=== PATIENT | female | born 1955 | race Caucasian/White ===

== ENCOUNTER 2016-06-28 10:04 | Outpatient (CLI) | payer MEDICAID ==
[~2016-06-28] VITALS: Ht 162.6 cm; Wt 59.9 kg
[~2016-06-28 10:04] MED LIST: ACHD5005 PO; ACYC400T; ALPR.5T PO; CEFU500T PO; DICY20TA10; ESOM40CA52 PO; HYDR-700; METH750T3 PO; NABU500T; NF-ESOM40C PO; PRD20T PO; SULF-222; SULF1TAB35 PO; TIZA4TAB3; TRAM50TA2 PO; VILA40TA; [UNRECOGNIZED DRUG - OTHER] PO
[2016-06-28] MEDS ORDERED: LIDOCAINE 2% 20 ML (XYLOCAINE) VIAL ONE (10:05)
[2016-06-28 10:29] VITALS: BP 124/82
[2016-06-28 11:21] VITALS: BP 126/88
--- NOTE | 2016-06-28 13:24 | Pain Medicine-Procedure ---
Procedure Pre-Op/Post-Op Diagnosis Diagnosis: spondylosis without myelopathy, lumbar Indications for Operation Low back pain Attending Surgeon Chaya Procedure Date of Service: Jun 28, 2016 PROCEDURE: Radiofrequency Ablation (RFA) of left L3, L4, L5 and sacral ala (S1 ) Medial Branches NOTE: After obtaining written informed consent patient was taken to the procedure room. Pre-procedure blood pressure and pulse were stable and recorded in patients clinic chart. Patient was placed in a prone position and left lumbar area was prepped with chloraprep and draped in the usual sterile fashion. The skin over the sacral ala on the left was injected with 2% Lidocaine for local anesthesia. A 20-gauge RFA 100 mm needle with 10 mm active was inserted and advanced until it was touching the sacral ala in the area of the medial branch from S1. Next, in the oblique view, the left L3,L4 and L5 levels were identified. The skin over L3, L4 and L5 was then injected with 1% Lidocaine for local anesthesia. Next a 20-gauge RFA 100 mm needle with 10 mm active tip was inserted and advanced until it was touching the L3, L4 and L5 levels in the distrubution of the medial branches at each level making sure to not enter the neuroforamina. Following the placement of the needles sensory stimulation at 50 Hz and motor stimulation at 2 Hz was carried out. After confirming reproduction of the pain/sensation in the area of symptoms and the patient denying any motor movement, 0.5 mL's of 2% preservative free Lidocaine was injected at each level after negative aspiration. The RFA was then carried out in lesion mode. The settings were 80 C, and 90 seconds for lesion mode at each level. During the procedure no pain was reported in the extremities by the patient. After the procedure the needles were removed. Skin was cleaned and a sterile dressing was applied. Following the procedure the patient's vital signs were stable. The patient was discharged. RFA DATA: In chart Complications None NOHEMI MOSS MD Jun 28, 2016 1:24 pm
== END 2016-06-28 11:22 | disposition home or self-care (01) ==
LOC: CARD 10:04
PROVIDERS: ATTEND Pain Medicine Pain Medicine
DX: M47.816 Spondylosis without myelopathy or radiculopathy, lumbar region (principal)
CPT/HCPCS: 64493; 64494; 64495

== ENCOUNTER 2016-07-19 08:36 | Outpatient (CLI) | payer MEDICAID ==
[~2016-07-19] VITALS: Ht 165.1 cm; Wt 62.6 kg
[2016-07-19] MEDS ORDERED: LIDOCAINE 2% 20 ML (XYLOCAINE) VIAL ONE (08:37)
[2016-07-19 08:54] VITALS: BP 115/91
[2016-07-19 10:08] VITALS: BP 122/78
--- NOTE | 2016-07-19 12:47 | Pain Medicine-Procedure ---
Procedure Pre-Op/Post-Op Diagnosis Diagnosis: spondylosis without myelopathy, lumbar Indications for Operation Low back pain Attending Surgeon Chaya Procedure Date of Service: Jul 19, 2016 PROCEDURE: Radiofrequency Ablation (RFA) of right L3, L4, L5 and sacral ala (S1 ) Medial Branches NOTE: After obtaining written informed consent patient was taken to the procedure room. Pre-procedure blood pressure and pulse were stable and recorded in patients clinic chart. Patient was placed in a prone position and right lumbar area was prepped with chloraprep and draped in the usual sterile fashion. The skin over the sacral ala on the right was injected with 2% Lidocaine for local anesthesia. A 20-gauge RFA 100 mm needle with 10 mm active was inserted and advanced until it was touching the sacral ala in the area of the medial branch from S1. Next, in the oblique view, the right L3,L4 and L5 levels were identified. The skin over L3, L4 and L5 was then injected with 1% Lidocaine for local anesthesia. Next a 20-gauge RFA 100 mm needle with 10 mm active tip was inserted and advanced until it was touching the L3, L4 and L5 levels in the distrubution of the medial branches at each level making sure to not enter the neuroforamina. Following the placement of the needles sensory stimulation at 50 Hz and motor stimulation at 2 Hz was carried out. After confirming reproduction of the pain/sensation in the area of symptoms and the patient denying any motor movement, 0.5 mL's of 2% preservative free Lidocaine was injected at each level after negative aspiration. The RFA was then carried out in lesion mode. The settings were 80 C, and 90 seconds for lesion mode at each level. During the procedure no pain was reported in the extremities by the patient. After the procedure the needles were removed. Skin was cleaned and a sterile dressing was applied. Following the procedure the patient's vital signs were stable. The patient was discharged. RFA DATA: In chart Complications None NOHEMI MOSS MD Jul 19, 2016 12:47 pm
== END 2016-07-19 10:11 ==
LOC: CARD 08:36
PROVIDERS: ATTEND Pain Medicine Pain Medicine
DX: M47.816 Spondylosis without myelopathy or radiculopathy, lumbar region (principal); Z79.899 Other long term (current) drug therapy
CPT/HCPCS: 64635; 64636

== ENCOUNTER 2016-09-05 12:55 | Outpatient (RCR) | payer MEDICAID | END 2016-09-05 13:47 | disposition home or self-care (01) | PROVIDERS: ATTEND Pain Medicine Pain Medicine | DX: M54.2 Cervicalgia (principal) ==

== ENCOUNTER → 2016-09-06 | Outpatient (CLI) | payer MEDICAID ==
--- NOTE | 2016-09-07 12:07 | Diagnostic Imaging Report ---
PROCEDURE: MRI left joint lower extremity without contrast. TECHNIQUE: Multiplanar, multisequence non contrast-enhanced MRI of the left lower extremity was accomplished. INDICATION: Left hip pain. There are no prior MRI examinations available for comparison. FINDINGS: The plain film examination left hip performed on 05/08/16 failed to show any sign of acute abnormality. On this exam, there is no abnormal signal arising from left hip to suggest bone edema. There is no sign of avascular necrosis either. The hip joint itself seems to be fairly well-maintained. However, on the proton dense sagittal series, there is a small 4 MM subchondral cyst in the anterior aspect of the hip joint. I suspect that this finding is an indirect sign of a labral tear. The labrum itself is somewhat irregular, but not significantly torn. However, further evaluation of the integrity of the labrum is desired, then followup MRI exam with intra-articular contrast would be recommended. There is no abnormality of the musculature about the left hip. There is no pelvic mass or free fluid collection noted. Remainder of the bony pelvis is unremarkable. There is no pelvic mass or free fluid collection identified either. IMPRESSION: 1. There is no evidence for an acute bony abnormality and there is no sign of avascular necrosis of left hip. 2. There is only mild degenerative disease involving the hip joint. However, the presence of the cyst in the anterior subchondral region may be an indirect sign of a labral tear. Recommendations as above. Dictated by: Dictated on workstation # [id number]
== END ==
LOC: RAD 17:00
PROVIDERS: ATTEND Orthopaedic Surgery
DX: M24.152 Other articular cartilage disorders, left hip (principal)
CPT/HCPCS: 73721

== ENCOUNTER 2017-01-10 11:28 | Outpatient (RCR) | payer MEDICAID | END 2017-01-31 10:56 | disposition home or self-care (01) | PROVIDERS: ATTEND Orthopaedic Surgery Sports Medicine | DX: Z98.890 Other specified postprocedural states (principal); M25.552 Pain in left hip ==

== ENCOUNTER 2019-01-20 19:47 | Emergency (ER) | payer MEDICAID ==
[~2019-01-20] VITALS: Ht 162.6 cm; Wt 59.0 kg
[~2019-01-20 19:47] MED LIST changes: -TIZA4TAB3; +TIZA4TAB4
[2019-01-20] MEDS ORDERED: KETOROLAC 30 MG/ML VIAL IM ONE (20:00)
--- NOTE | 2019-01-20 20:04 | ED Hip Pain/Injury ---
General Chief Complaint: Hip/Pelvic Problems Stated Complaint: L HIP PAIN Nursing Triage Note: Patient is complaining of left hip pain. Patient has chronic pain issues with the left hip. She reports getting a steroid shot few days ago in [place]. Patient states that having sudden severe pain [employer]. Source: patient Exam Limitations: no limitations History of Present Illness Date Seen by Provider: Jan 20, 2019 Time Seen by Provider: 20:02 Initial Comments To ER with reports of sudden onset of exacerbation of her chronic left hip pain. She's had an arthroscopy of the left hip at the [facility] several years ago, she had a injection of steroid in the left hip by Dr. Manzo at [facility] last week. These typically health. This morning upon awakening she felt much better. She denies fevers or chills. 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 When asked what makes it worse she states "everything" including sitting still. When asked what makes it better she states "nothing". Timing/Duration: constant Severity: moderate Location: hip (L) Associated Symptoms: denies symptoms; No fever Allergies and Home Medications Allergies Coded Allergies: doxycycline (Unverified Allergy, Unknown, RASH, 06/01/16) Home Medications Alprazolam 0.5 Mg Tablet, 0.5 MG PO TID PRN PRN for ANXIETY, (Reported) PRN ANXIETY Cefuroxime Axetil 500 Mg Tablet, 500 MG PO BID Prescribed by: LIZA REYNA on 06/01/16 1740 Esomeprazole Mag Trihydrate 40 Mg Capsule.dr, 40 MG PO DAILY, (Reported) Esomeprazole Magnesium 40 Mg Capsule.dr, 1 TAB PO DAILY, (Reported) Methocarbamol 750 Mg Tablet, 1 TAB PO DAILY PRN for PAIN, (Reported) Prednisone 20 Mg Tab, 40 MG PO DAILY Prescribed by: SANTHOSH LUGO on 05/08/16 1143 Tramadol HCl 50 Mg Tablet, 50 MG PO Q4H PRN for PAIN Prescribed by: SANTHOSH LUGO on 05/08/16 1143 Patient Home Medication List Home Medication List Reviewed: Yes Review of Systems Constitutional: see HPI EENTM: see HPI Respiratory: no symptoms reported Cardiovascular: no symptoms reported Genitourinary: no symptoms reported Musculoskeletal: see HPI Skin: no symptoms reported Psychiatric/Neurological: No Symptoms Reported Past Bkaeqke-Qetcql-Hodhsd Hx Patient Social History Alcohol Use: Denies Use Recreational Drug Use: No Smoking Status: Current Everyday Smoker Type Used: Cigarettes Recent Foreign Travel: No Contact w/Someone Who Travel: No Recent Infectious Disease Expo: No Recent Hopitalizations: No Immunizations Up To Date Date of Influenza Vaccine: May 24, 2013 Seasonal Allergies Seasonal Allergies: No Past Medical History Surgeries: Yes (left hernia repair. right breast biopsy) Hysterectomy Respiratory: No Cardiac: Yes High Cholesterol Neurological: No Genitourinary: No Gastrointestinal: No Musculoskeletal: Yes (DJD LEFT KNEE) Chronic Back Pain Endocrine: No Cancer: No Psychosocial: Yes PTSD Integumentary: No Blood Disorders: No Family Medical History No Pertinent Family Hx Physical Exam Vital Signs Vital Signs - First Documented 01/20/19 19:52 Temp 97.7 Pulse 82 Resp 20 B/P (MAP) 128/75 (92) Capillary Refill : Less Than 3 Seconds Height, Weight, BMI Height: 5'4.00" Weight: 130lbs. 0oz. 58.282666sg; 23.0 BMI Method:Stated General Appearance: No Apparent Distress, WD/WN Neck: Full Range of Motion, Normal Inspection Respiratory: No Accessory Muscle Use, No Respiratory Distress Gastrointestinal: Normal Bowel Sounds, Non Tender, Soft Extremity: Normal Capillary Refill, Normal Inspection Neurologic/Psychiatric: Alert, Oriented x3 Skin: Normal Color, Warm/Dry Progress/Results/Core Measures Results/Orders My Orders Orders - LIZA REYNA APRN Hip, Left, 2 Views (01/20/19 20:00) Ketorolac Injection (Toradol Injection) (01/20/19 20:00) Medications Given in ED Current Medications Medications Dose Ordered Sig/Justin Route Start Time Stop Time Status Last Admin Dose Admin Ketorolac Tromethamine 30 mg ONCE ONCE IM 01/20/19 20:00 01/20/19 20:02 DC 01/20/19 20:10 30 MG Vital Signs/I&O 01/20/19 19:52 Temp 97.7 Pulse 82 Resp 20 B/P (MAP) 128/75 (92) Blood Pressure Mean: 92 Departure Communication (Admissions) She has no systemic symptoms of infection such as tachycardia fever or chills. We will treat this as a mechanical in nature exacerbation of her chronic pain. Impression Primary Impression: Hip pain, left Disposition: 01 HOME, SELF-CARE Condition: Stable Departure-Patient Inst. Decision time for Depature: 20:15 Referrals: JUAN CHAVARRIA MD (PCP/Family) Primary Care Physician Patient Instructions: Hip Pain Images Extremities-Lower 1 - Other-See Progress Note LIZA REYNA APRN Jan 20, 2019 20:04
--- NOTE | 2019-01-20 20:13 | Diagnostic Imaging Report ---
INDICATION: Chronic pain worsening in severity. EXAMINATION: Two views of the left hip were obtained. FINDINGS: No fracture, dislocation or acute articular incongruity. IMPRESSION: No acute appearing abnormality. Dictated by: Dictated on workstation # [id number]
[2019-01-20 20:35] VITALS: BP 128/75
--- OUTSIDE RECORDS SUMMARY | 2019-01-20 21:05 | XMS REPORT ---
Author Author Migration, Doctor Organization [facility] Address Unknown Phone Unavailable Care Team Providers Care Timber Sprinkler Name Role Phone Migration, Doctor Unavailable Unavailable PROBLEMS Type Condition ICD9-CM Code VHW30-TP Code Onset Dates Condition Status SNOMED Code Problem Screening examination for pulmonary tuberculosis V74.1 Active 364304387 Problem MMR DX V06.4 Active Problem DTAP TEST V06.1 Active Problem Routine general medical examination at health care facility V70.0 Active 170543222 Problem Lumbago 724.2 Active 530577063 Problem STATE HEP A (ADULT) DX V05.3 Active 785719884 Problem Acute pharyngitis 462 Active 157420251 Problem Acute sinusitis, unspecified 461.9 Active 59062084 Problem Plantar wart 078.12 Active 23233897 Problem Post-traumatic stress disorder, chronic F43.12 Active 06253199 Problem Acute upper respiratory infections of unspecified site 465.9 Active 79640722 Problem 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 Active 32222988 Problem Acute bronchitis 466.0 Active 88642066 Problem Viral warts, unspecified 078.10 Active 41337137 Problem Corns and callosities 700 Active 512021064 Problem Need for prophylactic vaccination and inoculation, Influenza V04.81 Active 795779681 Problem 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 Active 55265453 ALLERGIES No Information ENCOUNTERS Encounter Location Date Diagnosis [facility] [address] [facility] [id number] [id number] Dec, Dental examination Z01.20 [facility] [address] [id number] [place] [address] May, Encounter for immunization Z23 [facility] [address] [facility] [id number] [address] 03 Jan, 2016 Post-traumatic stress disorder, chronic F43.12 ; 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 and 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 [facility] [address] [address] Dec, Post-traumatic stress disorder, chronic F43.12 ; 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 and 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 [facility] [address] [address] Dec, Post-traumatic stress disorder, chronic F43.12 ; 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 and 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 [facility] [id number] [place] [address] Dec, Chronic post-traumatic stress disorder (PTSD) F43.12 and Generalized anxiety disorder F41.1 [facility] [id number] [place] [address] Dec, Panic attacks F41.0 ; Anxiety, generalized F41.1 and Social phobia F40.10 [facility] [id number] [place] [address] Mar, Encounter for immunization Z23 [facility] [id number] [place] [address] Sep, [facility] [id number] [place] [address] Sep, [facility] [address] [address] Apr, [facility] [id number] [place] [address] Apr, [facility] [id number] [place] [address] Apr, [facility] [id number] [place] [address] Apr, [facility] [address] [address] Apr, [facility] [id number] [place] [address] Apr, [facility] [address] [id number] [place] [address] May, [facility] [place] [facility] [address] [id number] [place] [address] May, [facility] [place] [facility] [address] [id number] [place] [address] May, [facility] [place] [facility] [address] [id number] [place] [address] May, [facility] [place] [facility] [address] [id number] [place] [address] May, [facility] [place] [facility] [address] [id number] [place] [address] May, [facility] [place] [facility] [address] [id number] [place] [address] Apr, [facility] [address] [id number] [place] [address] Apr, [facility] [place] [facility] [address] [id number] [place] [address] Mar, [facility] [place] [facility] [address] [id number] [place] [address] Mar, [facility] [place] [facility] [address] [id number] [place] [address] Mar, [facility] [place] [facility] [address] [id number] [place] [address] Mar, [facility] [place] [facility] [address] [id number] [place] [address] Mar, [facility] [place] [facility] [address] [id number] [place] [address] Mar, [facility] [place] [facility] [address] [id number] [place] [address] Feb, [facility] [address] [facility] [id number] [address] Jan, [facility] [address] [address] Aug, [facility] [address] [facility] [id number] [address] Jul, [facility] [address] [address] Jun, [facility] [address] [facility] [id number], [place] [address] Jun, IMMUNIZATIONS No Known Immunizations SOCIAL HISTORY Never Assessed REASON FOR VISIT EMR-[facility] [place] PLAN OF CARE VITAL SIGNS MEDICATIONS Unknown Medications RESULTS No Results PROCEDURES No Known procedures INSTRUCTIONS MEDICATIONS ADMINISTERED No Known Medications MEDICAL (GENERAL) HISTORY Type Description Date Hospitalization History [facility] January 2015
--- OUTSIDE RECORDS SUMMARY | 2019-01-20 21:05 | XMS REPORT ---
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 Active 90539541 Problem Post-traumatic stress disorder, chronic F43.12 Active 10635423 Problem Plantar wart 078.12 Active 94298284 Problem Acute sinusitis, unspecified 461.9 Active 28427652 Problem 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 Active 33717796 Problem Viral warts, unspecified 078.10 Active 10457086 Problem MMR DX V06.4 Active Problem Screening examination for pulmonary tuberculosis V74.1 Active 344847118 Problem STATE HEP A (ADULT) DX V05.3 Active 698844249 Problem Need for prophylactic vaccination and inoculation, Influenza V04.81 Active 432387348 Problem Routine general medical examination at health care facility V70.0 Active 907569404 Problem Corns and callosities 700 Active 251811960 Problem DTAP TEST V06.1 Active Problem Lumbago 724.2 Active 502514920 ALLERGIES Substance Reaction Event Type Date Status Doxycycline Unknown Drug Allergy Dec, Active ENCOUNTERS Encounter Location Date Diagnosis [facility] [address] [id number] [place] [id number] Dec, Dental examination Z01.20 [facility] [address] [id number] [place] [address] May, Encounter for immunization Z23 [facility] [address] [facility] [id number] [place] [address] Jan, Post-traumatic stress disorder, chronic F43.12 ; 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 and 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 [facility] [place] [id number] [place] [address] Dec, Post-traumatic stress disorder, chronic F43.12 ; 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 and 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 [facility] [place] [address] [address] Dec, Post-traumatic stress disorder, chronic F43.12 ; 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 and 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 [facility] [place] [address] [address] Dec, Chronic post-traumatic stress disorder (PTSD) F43.12 and Generalized anxiety disorder F41.1 [facility] [place] [address] [address] Dec, Panic attacks F41.0 ; Anxiety, generalized F41.1 and Social phobia F40.10 [facility] [place] [id number] [place] [address] Mar, Encounter for immunization Z23 [facility] [place] [address] [address] Sep, [facility] [place] [id number] [place] [address] Sep, [facility] [place] [id number] [place] [address] Apr, [facility] [place] [id number] [place] [address] Apr, [facility] [place] [address] [address] Apr, [facility] [place] [id number] [place] [address] Apr, [facility] [place] [address] [place] [address] 05 Apr, 2014 [facility] [place] [facility] [address] [id number] [place] [address] Apr, [facility] [place] [facility] [address] [id number] [place] [address] May, [facility] [place] [facility] [address] [id number] [place] [address] May, [facility] [place] [facility] [address] [id number] [place] [address] May, [facility] [place] [facility] [address] [id number] [place] [address] May, [facility] [place] [facility] [address] [id number] [place] [address] May, [facility] [place] [facility] [address] [id number] [place] [address] May, [facility] [place] [facility] [address] [id number] [place] [address] Apr, [facility] [place] [facility] [address] [id number] [place] [address] Apr, [facility] [place] [facility] [address] [facility] [id number] [place] [address] Mar, [facility] [place] [facility] [address] [id number] [place] [address] Mar, [facility] [place] [facility] [address] [id number], [place] [address] Mar, [facility] [place] [facility] [address] [id number] [place] [address] Mar, [facility] [place] [facility] [address] [id number] [place] [address] Mar, [facility] [place] [facility] [address] [id number] [place] [address] Mar, [facility] [place] [address] [facility] [id number], [place] [address] Feb, [facility] [place] [address] [id number] [address] Jan, [facility] [place] [address] [address] Aug, [facility] [place] [address] [place] [address] Jul, [facility] [place] [address] [address] Jun, [place] [address] [address], [place] [address] Jun, IMMUNIZATIONS No Known Immunizations SOCIAL HISTORY Never Assessed REASON FOR VISIT restorative #14-ref from [facility] PLAN OF CARE Activity Details Follow Up prn Reason:30 min possible restorative #[address] Montemayor VITAL SIGNS Height 64 in 2018-01-16 Blood pressure systolic 116 mmHg 2018-01-16 Blood pressure diastolic 84 mmHg 2018-01-16 MEDICATIONS Medication Instructions Dosage Frequency Start Date End Date Duration Status Xanax 0.25 mg SIG: orally 2 times a day Jun, Not-Taking Paxil 20 mg Orally Once a day 1 tablet in the morning 24h Dec, 30 day(s) Active Fenofibrate 145 MG Orally Once a day 1 tablet 24h Not-Taking HydrOXYzine HCl 25 MG Orally 2 times a day 1 tablet as needed 12h Not-Taking Tricor Active Xanax Active Amoxicillin 500 mg 2 capsule by Oral route 2 times per day for 10 day(s) Aug, Not-Taking Viibryd 40 mg take 1 tablet (40 mg) by oral route once daily with food Mar, Not-Taking Seroquel Active Nexium 40 MG Orally Once a day 1 capsule 24h Active Dicyclomine HCl 20 MG Orally Four times a day 1 tablet 6h Active RESULTS No Results PROCEDURES Procedure Date Ordered Result Body Site BITEWING - SINGLE FILM January 16, 2018 RESIN COMPOS - 1 SURFACE POSTERIOR January 16, 2018 INSTRUCTIONS MEDICATIONS ADMINISTERED No Known Medications MEDICAL (GENERAL) HISTORY Type Description Date Hospitalization History [facility] January 2015
--- OUTSIDE RECORDS SUMMARY | 2019-01-20 21:05 | XMS REPORT ---
Author Author Migration, Doctor Organization [facility] Address Unknown Phone Unavailable Care Team Providers Care Metal Expediter Name Role Phone Migration, Doctor Unavailable Unavailable PROBLEMS Type Condition ICD9-CM Code PPN15-RK Code Onset Dates Condition Status SNOMED Code Problem Screening examination for pulmonary tuberculosis V74.1 Active 082602170 Problem MMR DX V06.4 Active Problem DTAP TEST V06.1 Active Problem Routine general medical examination at health care facility V70.0 Active 071200137 Problem Need for prophylactic vaccination and inoculation, Influenza V04.81 Active 792485997 Problem STATE HEP A (ADULT) DX V05.3 Active 243543380 Problem Acute bronchitis 466.0 Active 67371341 Problem Acute upper respiratory infections of unspecified site 465.9 Active 88685182 Problem Acute pharyngitis 462 Active 403996824 Problem Post-traumatic stress disorder, chronic F43.12 Active 74433246 Problem Lumbago 724.2 Active 135558249 Problem 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 Active 86411709 Problem Corns and callosities 700 Active 557749665 Problem Acute sinusitis, unspecified 461.9 Active 28437187 Problem Plantar wart 078.12 Active 03437167 Problem Viral warts, unspecified 078.10 Active 57755028 Problem 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 Active 93688192 ALLERGIES Substance Reaction Event Type Date Status Doxycycline Unknown Drug Allergy Sep, Active ENCOUNTERS Encounter Location Date Diagnosis [facility] [address] [facility] [id number] [place] [id number] Dec, Dental examination Z01.20 [facility] [address] [id number] [place] [address] May, Encounter for immunization Z23 [facility] [address] [facility] [id number], [place] [address] 03 Jan, 2016 Post-traumatic stress disorder, chronic F43.12 ; 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 and 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 [facility] [address] [place] [address] Dec, Post-traumatic stress disorder, chronic F43.12 ; 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 and 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1 and Social phobia F40.10 [facility] [id number] [place] [address] Mar, Encounter for immunization Z23 [facility] [id number] [place] [address] Sep, [facility] [id number] [place] [address] Sep, [facility] [id number] [place] [address] Apr, [facility] [id number] [place] [address] Apr, [facility] [id number] [place] [address] Apr, [facility] [id number] [place] [address] Apr, [facility] [id number] [place] [address] Apr, [facility] [place] [facility] [address] [id number] [place] [address] Apr, [facility] [place] [facility] [address] [id number] [place] [address] May, [facility] [place] [facility] [address] [id number] [place] [address] May, [facility] [place] [facility] [address] [id number] [place] [address] May, [facility] [place] [facility] [address] [id number] [place] [address] May, [facility] [place] [facility] [address] [id number] [place] [address] May, [facility] [place] [facility] [address] [id number] [place] [address] May, [facility] [place] [facility] [address] [id number] [place] [address] Apr, [facility] [place] [facility] [address] [id number] [place] [address] Apr, [facility] [place] [facility] [address] [id number], [place] [address] Mar, [facility] [place] [facility] [address] [id number], [place] [address] Mar, [facility] [place] [facility] [address] [id number], [place] [address] Mar, [facility] [place] [facility] [address] [id number] [place] [address] Mar, [facility] [place] [facility] [address] [id number], [place] [address] Mar, [facility] [place] [facility] [address] [id number] [place] [address] Mar, [facility] [place] [facility] [address] [facility] [id number], [place] [address] Feb, [facility] [address], [place] [address] Jan, [facility] [address] [id number], [place] [address] Aug, [facility] [address], [place] [address] Jul, [facility] [address], [place] [address] Jun, [facility] [address], [place] [address] Jun, IMMUNIZATIONS No Known Immunizations SOCIAL HISTORY Never Assessed REASON FOR VISIT [place] [place] VITAL SIGNS MEDICATIONS Medication Instructions Dosage Frequency Start Date End Date Duration Status Viibryd 40 mg take 1 tablet (40 mg) by oral route once daily with food Mar, Active Xanax 0.25 mg SIG: orally 2 times a day Jun, Active Amoxicillin 500 mg 2 capsule by Oral route 2 times per day for 10 day(s) Aug, Active RESULTS No Results PROCEDURES No Known procedures INSTRUCTIONS MEDICATIONS ADMINISTERED No Known Medications MEDICAL (GENERAL) HISTORY Type Description Date Hospitalization History [facility] January 2015
--- OUTSIDE RECORDS SUMMARY | 2019-01-20 21:05 | XMS REPORT | Clinical Summary ---
Author Author [facility] Address Unknown Phone Unavailable Care Team Providers Care Business Executive Name Role Phone Eboni Roy MD PCP Source Comments Some departments are not documenting in the electronic medical record. If you d o not see the information that you expected, contact Release of Information in located within [facility] [employer] Information Management department at [phone] for further assistan ce in locating additional records.[facility] Allergies Comments Active Allergy Reactions Severity Noted Date Doxycycline RASH Medium 10/28/2016 Medications End Date Status Medication Sig Dispensed Refills Start Date Active PAROXETINE HCL (PAXIL PO) Take 60 mg by 0 mouth daily. Active hydrOXYzine (ATARAX) 25 Take 25 mg by 0 mg tabletIndications: mouth twice anxiety daily. Indications: ANXIETY Active ESOMEPRAZOLE MAGNESIUM Take 40 mg by 0 (NEXIUM PO) mouth daily. Active dicyclomine (BENTYL) 10 Take 10 mg by 0 mg capsule mouth twice daily. Active QUEtiapine (SEROQUEL) 25 Take 25 mg by 0 mg tablet mouth at bedtime daily. Active ALPRAZolam (XANAX) 0.5 mg Take 0.5 mg 0 tabletIndications: panic by mouth disorder daily as needed for Anxiety. Indications: PANIC DISORDER Active Problems Not on file Social History Date Tobacco Use Types Packs/Day Years Used Current Every Day Smoker Cigarettes 0.5 43 Drinks/Week oz/Week Comments Alcohol Use 0 Standard drinks or equivalent 0.0 rarely, 1 x month No Sex Assigned at Date Recorded Not on file Industry Job Start Date Occupation Not on file Not on file Not on file Travel End Travel History Travel Start No recent travel history available. Last Filed Vital Signs Reading Time Taken Comments Vital Sign 142/71 04/09/2017 11:15 AM CDT Blood Pressure 86 04/09/2017 11:15 AM CDT Pulse 36.7 C (98 F) 12/03/2016 8:45 PM CDT Temperature 16 04/09/2017 11:15 AM CDT Respiratory Rate 97% 04/09/2017 11:15 AM CDT Oxygen Saturation - - Inhaled Oxygen Concentration 59 kg (130 lb) 04/09/2017 11:15 AM CDT Weight 162.6 cm (5' 4") 04/09/2017 11:15 AM CDT Height 22.31 04/09/2017 11:15 AM CDT Body Mass Index Plan of Treatment Health Maintenance Due Date Last Done Comments HEPATITIS C SCREENING 1957 PHYSICAL (COMPREHENSIVE) 1964 EXAM HIV SCREENING 1972 DTAP/TDAP VACCINES (1 - 1975 Tdap) CERVICAL CANCER SCREENING 1987 BREAST CANCER SCREENING 1997 COLORECTAL CANCER 2007 SCREENING SHINGLES RECOMBINANT 2007 VACCINE (1 of 2) INFLUENZA VACCINE 03/23/2019 Implants Device Identifier Shelf Expiration Date Model / Serial / Lot Implanted Type Area Manufactur er 09/12/2019 [id number] / NA / [id number] Suture [place] 1.4mm Pivot Kim Left: Hip SHERRI:ST Implanted: Qty: 1 on 12/03/2016 by Jose Coles MD at [facility] 04/28/2018 [id number] / NA / [id number] [place] Suture Cinchlock Ss Knotless Left: Hip SHERRI:ST Mail Deliverer Lock Anatomic MARILUZ Implanted: Qty: 3 on 12/03/2016 by Jose Ferrara MD at [facility] Results Not on filefrom Last 3 Months Advance Directives Patient Softball Player Explanation Type Date Recorded Advance Directive/DPOA
--- OUTSIDE RECORDS SUMMARY | 2019-01-20 21:05 | XMS REPORT ---
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 Active Problem 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 Active Problem Post-traumatic stress disorder, chronic F43.12 Active Problem Lumbago 724.2 Active Problem Acute bronchitis 466.0 Active Problem Corns and callosities 700 Active Problem Viral warts, unspecified 078.10 Active Assessment Post-traumatic stress disorder, chronic F43.12 Active Problem STATE HEP A (ADULT) DX V05.3 Active Assessment 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 Active Assessment 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 Active Problem Routine general medical examination at health care facility V70.0 Active Problem MMR DX V06.4 Active Problem DTAP TEST V06.1 Active Problem Plantar wart 078.12 Active Problem Screening examination for pulmonary tuberculosis V74.1 Active Problem Acute pharyngitis 462 Active Medications Medication Code System Code Instructions Start Date End Date Status Dosage Viibryd [facility] [address]-92 40 mg Apr 14, 2012 take 1 tablet (40 mg) by oral route once daily with food HydrOXYzine HCl [facility] [address]-45 25 MG Orally 2 times a day 1 tablet as needed Nexium [facility] [address]-81 40 MG Orally Once a day 1 capsule Dicyclomine HCl [facility] [address]-91 20 MG Orally Four times a day 1 tablet Procedures Procedure Coding System Code Date Office Visit, Est Pt., Level 4 CPT-4 04365 Jan 24, 2016 Vital Signs Date/Time: Jan 24, 2016 Cardiac Monitoring Heart Rate 100 bpm Weight 133.6 lbs Height 64 in BMI 22.93 Index Blood Pressure Diastolic 100 mmHg Blood Pressure Systolic 120 mmHg Results No Known Results Summary Purpose eClinicalWorks Submission
--- OUTSIDE RECORDS SUMMARY | 2019-01-20 21:05 | XMS REPORT ---
Author Author GHISLAINE DIAS [facility] eClinicalWorks Address Unknown Phone Unavailable Care Team Providers Care Press Puller Name Role Phone GHISLAINE DIAS CP Unavailable Allergies No Known Allergies Problems Problem Type Condition Code Onset Dates [...] Active Problem Acute pharyngitis 462 Active Medications No Known Medications Procedures Procedure Coding System Code Date Psychotherapy, patient &/family, 30 minutes, established patient CPT-4 21651 January 15, 2016 Results No Known Results Summary Purpose eClinicalWorks Submission
--- OUTSIDE RECORDS SUMMARY | 2019-01-20 21:05 | XMS REPORT ---
Author Author GHISLAINE DIAS [facility] eClinicalWorks Address Unknown Phone Unavailable Care Team Providers Care Dude Wrangler Name Role Phone GHISLAINE DIAS CP Unavailable [...] Medications Procedures Procedure Coding System Code Date Psych diagnostic evaluation, established patient CPT-4 51133 December 26, 2015 Results No Known Results Summary Purpose eClinicalWorks Submission
--- OUTSIDE RECORDS SUMMARY | 2019-01-20 21:06 | XMS REPORT ---
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 Active 83150063 Problem Post-traumatic stress disorder, chronic F43.12 Active 42760307 Problem Plantar wart 078.12 Active 77964759 Problem Acute sinusitis, unspecified 461.9 Active 25719324 Problem 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 Active 92708350 Problem Viral warts, unspecified 078.10 Active 04952281 Problem MMR DX V06.4 Active Problem Screening examination for pulmonary tuberculosis V74.1 Active 571381337 Problem STATE HEP A (ADULT) DX V05.3 Active 607957137 Problem Need for prophylactic vaccination and inoculation, Influenza V04.81 Active 951265628 Problem Routine general medical examination at health care facility V70.0 Active 721006168 Problem Corns and callosities 700 Active 792161223 Problem DTAP TEST V06.1 Active Problem Lumbago 724.2 Active [id number] ALLERGIES No Information ENCOUNTERS Encounter Location Date Diagnosis [facility] [address] [id number] [place] [address] May, Encounter for immunization Z23 [facility] [address] [facility] [id number], [place] [address] 03 Jan, 2016 Post-traumatic stress disorder, chronic F43.12 ; 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 and 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 [facility] [id number] [place] [address] Dec, Post-traumatic stress disorder, chronic F43.12 ; 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 and 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 [facility] [id number] [place] [address] Dec, Post-traumatic stress disorder, chronic F43.12 ; 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 and 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 [facility] [id number] [place] [address] Dec, Chronic post-traumatic stress disorder (PTSD) F43.12 and Generalized anxiety disorder F41.1 [facility] [id number] [place] [address] Dec, Panic attacks F41.0 ; Anxiety, generalized F41.1 and Social phobia F40.10 [place] [id number] [place] [address] Mar, Encounter for immunization Z23 [facility] [id number] [place] [address] Sep, [facility] [id number] [place] [address] Sep, [facility] [id number] [place] [address] Apr, [facility] [id number] [place] [address] Apr, [facility] [id number] [place] [address] Apr, [facility] [id number] [place] [address] Apr, [facility] [id number] [place] [address] Apr, [facility] [address] [place] [address] Apr, [facility] [place] [facility] [address] [id number] [place] [address] May, [facility] [place] [facility] [address] [id number] [place] [address] May, [facility] [place] [facility] [address] [id number] [place] [address] May, [facility] [place] [facility] [address] [id number] [place] [address] May, [facility] [place] [facility] [address] [id number] [place] [address] May, [facility] [place] [facility] [address] [id number] [place] [address] May, [facility] [place] [facility] [address] [id number] [place] [address] Apr, [facility] [place] [facility] [address] [id number] [place] [address] Apr, [facility] [place] [facility] [address] [id number] [place] [address] Mar, [facility] [place] [facility] [address] [facility] [id number] [place] [address] Mar, [facility] [place] [facility] [address] [id number] [place] [address] Mar, [facility] [place] [facility] [address] [id number], [place] [address] Mar, [facility] [place] [facility] [address] [id number] [place] [address] Mar, [facility] [place] [facility] [address] [id number] [place] [address] Mar, [facility] [place] [facility] [address] [facility] [id number] [place] [address] Feb, [facility] [place] [facility] [address] [facility] [id number], [place] [address] Jan, [facility] [address] [id number] [address] Aug, [facility] [address] [id number], [place] [address] Jul, [facility] [address] [id number], [place] [address] Jun, [facility] [address] [facility] [id number], [place] [address] Jun, IMMUNIZATIONS Vaccine Route Administration Date Status FLUARIX QUAD (3 AND UP) 2016 IM Intramuscular Jun 02, 2017 Administered SOCIAL HISTORY Never Assessed REASON FOR VISIT Flu shot PLAN OF CARE VITAL SIGNS MEDICATIONS Unknown Medications RESULTS No Results PROCEDURES Procedure Date Ordered Result Body Site FLUARIX QUAD (3 AND UP) 2016Jun 02, 2017 SINGLE IMMUNIZATION ADMIN Jun 02, 2017 INSTRUCTIONS MEDICATIONS ADMINISTERED No Known Medications MEDICAL (GENERAL) HISTORY Type Description Date Hospitalization History [facility] January 2015
--- OUTSIDE RECORDS SUMMARY | 2019-01-20 21:07 | XMS REPORT | Continuity of Care Document ---
Author Organization Unknown Address Unknown Phone Unavailable Allergies Active Description Code Type Severity Reaction Onset Reported/Identified Relationship to Patient Clinical Status Yes NO KNOWN DRUG ALLERGIES NO KNOWN DRUG ALLERG UNKNOWN Yes DOXYCYCLINE MONOHYDRATE UNKNOWN UNKNOWN Yes NO KNOWN DRUG ALLERGIES UNKNOWN NO KNOWN DRUG ALLERG Yes doxycycline Drug Allergy 06/28/2011 Yes doxycycline Drug Allergy N/A N/A 06/28/2011 Yes doxycycline [id number] Drug Allergy Unknown RASH 06/01/2016 Medications Medication Packaging Start Date Stop Date Route Dosage Sig KETOROLAC VIAL INJ 60 MG/2CC (TORADOL VIAL) MG 10/22/2016 10/22/2016 ONCE&0904 LACTATED RINGERS 1000CC IV BAG INJ ml 10/25/2017 11/01/2017 CONTINUOUSEVERY 0 Hour IBUPROFEN TAB 600 MG (MOTRIN) MG 10/25/2017 10/25/2017 ONCE&2045 ONDANSETRON VIAL INJ 4 MG/2CC (ZOFRAN 2CC VIAL) MG 10/25/2017 10/25/2017 ONCE&2045 AZITHROMYCIN TAB 500 MG (ZITHROMAX) MG 10/25/2017 10/25/2017 ONCE&2129 CEFTRIAXONE PREMIX IV BAG IV 1 GM/50CC (ROCEPHIN PREMIX IV BAG) GM 10/25/2017 10/25/2017 ONCE&2129 Problems Date Dx Coded Attending Type Code Diagnosis Diagnosed By 06/28/2011 TRUE DECKER APRN 466.0 ACUTE BRONCHITIS 06/28/2011 TRUE DECKER APRN 724.2 lower back pain 06/28/2011 ROSITA STRATTON DO 466.0 ACUTE BRONCHITIS 06/28/2011 ROSITA STRATTON DO 724.2 lower back pain 06/28/2011 DANIEL STRATTON DOA K 466.0 ACUTE BRONCHITIS 06/28/2011 ROSITA STRATTON DO 724.2 lower back pain 06/28/2011 ROSITA STRATTON DO K 466.0 ACUTE BRONCHITIS 06/28/2011 ROSITA STRATTON DO 724.2 lower back pain 06/28/2011 STRATTON DO, ROSITA K 466.0 ACUTE BRONCHITIS 06/28/2011 STRATTON DO, ROSITA K 724.2 lower back pain 06/28/2011 RIYA SORTOLASHONDA Whatley Hakeem 466.0 ACUTE BRONCHITIS 06/28/2011 RIYA SORTOLASHONDA Whatley Hakeem 724.2 lower back pain 07/19/2011 BRIANNE COMMUNITY DIRECTOR, TRUE S V05.3 HEP B (ADULT) DX 07/19/2011 BRIANNE COMMUNITY DIRECTOR, TRUE S V06.1 TDAP DX 07/19/2011 BRIANNE COMMUNITY DIRECTOR, TRUE S V06.4 MMR DX 07/19/2011 BRIANNE BORDEN TRUE S V70.0 ROUTINE GENERAL MEDICAL EXAMINATION AT A HEALTH CARE FACILITY 07/19/2011 BRIANNE BORDEN TRUE S V74.1 TB SCREENING 07/19/2011 STRATTON DO, ROSITA K V05.3 HEP B (ADULT) DX 07/19/2011 STRATTON DO, ROSITA K V06.1 TDAP DX 07/19/2011 STRATTON DO, ROSITA K V06.4 MMR DX 07/19/2011 STRATTON DO, ROSITA K V70.0 ROUTINE GENERAL MEDICAL EXAMINATION AT A HEALTH CARE FACILITY 07/19/2011 STRATTON DO, ROSITA K V74.1 TB SCREENING 07/19/2011 STRATTON DO, ROSITA K V05.3 HEP B (ADULT) DX 07/19/2011 STRATTON DO, ROSITA K V06.1 TDAP DX 07/19/2011 STRATTON DO, ROSITA K V06.4 MMR DX 07/19/2011 STRATTON DO, ROSITA K V70.0 ROUTINE GENERAL MEDICAL EXAMINATION AT A HEALTH CARE FACILITY 07/19/2011 STRATTON DO, ROSITA K V74.1 TB SCREENING 07/19/2011 STRATTON DO, ROSITA K V05.3 HEP B (ADULT) DX 07/19/2011 STRATTON DO, ROSITA K V06.1 TDAP DX 07/19/2011 STRATTON DO, ROSITA K V06.4 MMR DX 07/19/2011 STRATTON DO, ROSITA K V70.0 ROUTINE GENERAL MEDICAL EXAMINATION AT A HEALTH CARE FACILITY 07/19/2011 STRATTON DO, ROSITA K V74.1 TB SCREENING 07/19/2011 STRATTON DO, ROSITA K V05.3 HEP B (ADULT) DX 07/19/2011 STRATTON DO, ROSITA K V06.1 TDAP DX 07/19/2011 STRATTON DO, ROSITA K V06.4 MMR DX 07/19/2011 STRATTON DO, ROSITA K V70.0 ROUTINE GENERAL MEDICAL EXAMINATION AT A HEALTH CARE FACILITY 07/19/2011 STRATTON DO, ROSITA K V74.1 TB SCREENING 07/19/2011 LASHONDA RITTER APRN V05.3 HEP B (ADULT) DX 07/19/2011 LASHONDA RITTER APRN V06.1 TDAP DX 07/19/2011 LASHONDA RITTER APRN V06.4 MMR DX 07/19/2011 LASHODNA RITTER APRN V70.0 ROUTINE GENERAL MEDICAL EXAMINATION AT A HEALTH CARE FACILITY 07/19/2011 LASHONDA RITTER APRN V74.1 TB SCREENING 09/14/2011 TRUE DECKER APRN 462 ACUTE PHARYNGITIS 09/14/2011 STRATTON DO ROSITA K 462 ACUTE PHARYNGITIS 09/14/2011 STRATTON DO ROSITA K 462 ACUTE PHARYNGITIS 09/14/2011 STRATOTN DO ROSITA K 462 ACUTE PHARYNGITIS 09/14/2011 STRATTON DO, ROSITA K 462 ACUTE PHARYNGITIS 09/14/2011 LASHONDA RITTER APRN 462 ACUTE PHARYNGITIS 04/14/2012 TRUE DECKER APRN V04.81 FLU DX (3 YRS AND ABOVE, IM) 04/14/2012 STRATTON DO, ROSITA K V04.81 FLU DX (3 YRS AND ABOVE, IM) 04/14/2012 STRATTON DO ROSITA K V04.81 FLU DX (3 YRS AND ABOVE, IM) 04/14/2012 STRATTON DO, ROSITA K V04.81 FLU DX (3 YRS AND ABOVE, IM) 04/14/2012 STRATTON DO, ROSITA K V04.81 FLU DX (3 YRS AND ABOVE, IM) 04/14/2012 LASHONDA RITTER APRN V04.81 FLU DX (3 YRS AND ABOVE, IM) 06/03/2012 STRATTON DO ROSITA K 461.9 SINUSITIS ACUTE 06/03/2012 STRATTON DO ROSITA K 465.9 UPPER RESPIRATORY INFECTION 06/03/2012 STRATTON DO ROSITA K 461.9 SINUSITIS ACUTE 06/03/2012 STRATTON DO, ROSITA K 465.9 UPPER RESPIRATORY INFECTION 06/03/2012 STRATTON DO, ROSITA K 461.9 SINUSITIS ACUTE 06/03/2012 STRATTON DO, ROSITA K 465.9 UPPER RESPIRATORY INFECTION 06/03/2012 STRATTON DO, ROSITA K 461.9 SINUSITIS ACUTE 06/03/2012 STRATTON DO, ROSITA K 465.9 UPPER RESPIRATORY INFECTION 06/03/2012 LASHONDA RITTER APRN 461.9 SINUSITIS ACUTE 06/03/2012 LASHONDA RITTER APRN 465.9 UPPER RESPIRATORY INFECTION 03/08/2013 REVEAL JYOTSNA GALLEGOS Ot 305.1 TOBACCO USE DISORDER 03/08/2013 REVEAL JYOTSNA GALLEGOS Ot 733.92 CHONDROMALACIA 06/14/2013 REVEAL JYOTSNA GALLEGOS Ot 300.00 ANXIETY STATE NOS 06/14/2013 REVEAL JYOTSNA GALLEGOS Ot 305.1 TOBACCO USE DISORDER 06/14/2013 REVEAL JYOTSNA GALLEGOS Ot 717.7 CHONDROMALACIA PATELLAE 06/14/2013 REVEAL JYOTSNA GALLEGOS Ot V74.8 SCREEN-BACTERIAL DIS NEC 04/27/2014 CHAYITO AGUILLON, ROSITA K 078.10 VIRAL WARTS UNSPECIFIED 04/27/2014 STRATTON DO, ROSITA K 700 CORNS AND CALLOSITIES 04/27/2014 CHAYITO AGUILLON, ROSITA K 078.10 VIRAL WARTS UNSPECIFIED 04/27/2014 STRATTON DO, ROSITA K 700 CORNS AND CALLOSITIES 04/27/2014 LASHONDA RITTER APRN 078.10 VIRAL WARTS UNSPECIFIED 04/27/2014 LASHONDA RITTER APRN 700 CORNS AND CALLOSITIES 05/17/2014 LASHONDA RITTER APRN 078.12 PLANTAR WART 09/28/2014 VOLODYMYR DO, CM F Ot 719.43 10/04/2014 VOLODYMYR DO, CM F Ot 719.43 10/04/2014 VOLODYMYR DO, CM F Ot 719.43 10/28/2014 VOLODYMYR DO, CM F Ot 719.43 08/10/2015 REVEAL JYOTSNA GALLEGOS Ot 717.7 08/10/2015 REVEAL JYOTSNA GALLEGOS Ot V72.84 08/10/2015 JYOTSNA DE JESUS MD Ot V74.8 08/10/2015 JYOTSNA DE JESUS MD Ot 717.7 08/10/2015 JYOTSNA DE JESUS MD Ot V72.84 08/10/2015 VOLODYMYR DO, CM F Ot 719.43 08/23/2015 NOHEMI MOSS MD Ot M54.5 09/01/2015 NOHEMI MOSS MD Ot M51.16 INTERVERTEBRAL DISC DISORDERS W RADICULO 09/01/2015 NOHEMI MOSS MD Ot Z79.899 OTHER NETBACKUP ENGINEER (CURRENT) DRUG THERAPY 09/08/2015 NOHEMI MOSS MD Ot M51.16 09/08/2015 NOHEMI MOSS MD, Ot Z79.899 09/10/2015 NOHEMI MOSS MD, Ot M51.16 09/10/2015 NOHEMI MOSS MD Ot Z79.899 10/06/2015 JYOTSNA DE JESUS MD Ot 717.7 CHONDROMALACIA PATELLAE 10/06/2015 JYOTSNA DE JESUS MD Ot V72.84 EXAM PRE-OPERATIVE NOS 10/06/2015 JYOTSNA DE JESUS MD, Ot V74.8 SCREEN-BACTERIAL DIS NEC 10/06/2015 JYOTSNA DE JESUS MD Ot 717.7 CHONDROMALACIA PATELLAE 10/06/2015 JYOTSNA DE JESUS MD Ot V72.84 EXAM PRE-OPERATIVE NOS 10/06/2015 VOLODYMYR DO, CM F Ot 719.43 JOINT PAIN-FOREARM 10/06/2015 NOHEMI MOSS MD Ot M54.5 LOW BACK PAIN 10/06/2015 NOHEMI MOSS MD Ot M47.816 SPONDYLOSIS W/O MYELOPATHY OR RADICULOPA 10/06/2015 NOHEMI MOSS MD Ot M51.16 INTERVERTEBRAL DISC DISORDERS W RADICULO 10/06/2015 NOHEMI MOSS MD Ot Z79.899 OTHER NETBACKUP ENGINEER (CURRENT) DRUG THERAPY 03/15/2016 JYOTSNA DE JESUS MD Ot 717.7 CHONDROMALACIA PATELLAE 03/15/2016 JYOTSNA DE JESUS MD Ot V72.84 EXAM PRE-OPERATIVE NOS 03/15/2016 JYOTSNA DE JESUS MD Ot V74.8 SCREEN-BACTERIAL DIS NEC 03/15/2016 JYOTSNA DE JESUS MD Ot 717.7 CHONDROMALACIA PATELLAE 03/15/2016 JYOTSNA DE JESUS MD Ot V72.84 EXAM PRE-OPERATIVE NOS 03/15/2016 VOLODYMYR DO, CM F Ot 719.43 JOINT PAIN-FOREARM 03/15/2016 NOHEMI MOSS MD Ot M54.5 LOW BACK PAIN 03/15/2016 NOHEMI MOSS MD Ot M47.816 SPONDYLOSIS W/O MYELOPATHY OR RADICULOPA 03/15/2016 NOHEMI MOSS MD Ot M51.16 INTERVERTEBRAL DISC DISORDERS W RADICULO 04/12/2016 NOHEMI MOSS MD, Ot M54.5 LOW BACK PAIN 04/12/2016 NOHEMI MOSS MD, Ot M54.5 LOW BACK PAIN 04/23/2016 NOHEMI MOSS MD, Ot M54.5 LOW BACK PAIN 04/26/2016 NOHEMI MOSS MD, Ot M47.816 SPONDYLOSIS W/O MYELOPATHY OR RADICULOPA 05/08/2016 SANTHOSH CALI Ot S76.012A STRAIN OF MUSCLE, FASCIA AND TENDON OF L 05/08/2016 SANTHOSH CALI Ot S76.912A STRAIN OF UNSP MUSC/FASC/TEND AT THI LEV 05/08/2016 SANTHOSH CALI Ot S79.912A UNSPECIFIED INJURY OF LEFT HIP, INITIAL 05/08/2016 SANTHOSH CALI Ot X50.9XXA OTHER AND UNSPECIFIED OVREXRTN OR STRNOU 05/08/2016 SANTHOSH CALI Ot Y92.[address] IN [facility] NON-INST[facility] (PRIVATE 05/08/2016 SANTHOSH CALI Ot Y93.89 ACTIVITY, OTHER SPECIFIED 05/08/2016 SANTHOSH CALI Ot Y99.8 OTHER EXTERNAL CAUSE STATUS 06/01/2016 CHING RUBY MD Ot G89.29 OTHER CHRONIC PAIN 06/01/2016 CHING RUBY MD, Ot M54.5 LOW BACK PAIN 06/01/2016 CHING RUBY MD, Ot N39.0 URINARY TRACT INFECTION, SITE NOT SPECIF 06/01/2016 CHING RUBY MD, Ot R51 HEADACHE 06/03/2016 CHING RUBY MD Ot G89.29 OTHER CHRONIC PAIN 06/03/2016 CHING RUBY MD, Ot M54.5 LOW BACK PAIN 06/03/2016 CHING RUBY MD, Ot N39.0 URINARY TRACT INFECTION, SITE NOT SPECIF 06/03/2016 CHING RUBY MD, Ot R51 HEADACHE 06/28/2016 JYOTSNA DE JESUS MD Ot 717.7 CHONDROMALACIA PATELLAE 06/28/2016 JYOTSNA DE JESUS MD Ot V72.84 EXAM PRE-OPERATIVE NOS 06/28/2016 JYOTSNA DE JESUS MD Ot V74.8 SCREEN-BACTERIAL DIS NEC 06/28/2016 JYOTSNA DE JESUS MD Ot 717.7 CHONDROMALACIA PATELLAE 06/28/2016 JYOTSNA DE JESUS MD Ot V72.84 EXAM PRE-OPERATIVE NOS 06/28/2016 VOLODYMYR AGUILLON CM F Ot 719.43 JOINT PAIN-FOREARM 06/28/2016 NOHEMI MOSS MD, Ot M54.5 LOW BACK PAIN 06/28/2016 NOHEMI MOSS MD, Ot M54.5 LOW BACK PAIN 06/28/2016 NOHEMI MOSS MD Ot M47.816 SPONDYLOSIS W/O MYELOPATHY OR RADICULOPA 07/19/2016 NOHEMI MOSS MD Ot M47.816 SPONDYLOSIS W/O MYELOPATHY OR RADICULOPA 07/19/2016 NOHEMI MOSS MD Ot Z79.899 OTHER RESIDENTIAL (CURRENT) DRUG THERAPY 07/30/2016 NOHEMI MOSS MD Ot M47.816 SPONDYLOSIS W/O MYELOPATHY OR RADICULOPA 07/30/2016 NOHEMI MOSS MD Ot Z79.899 OTHER RESIDENTIAL (CURRENT) DRUG THERAPY 08/01/2016 NOHEMI MOSS MD Ot M47.816 SPONDYLOSIS W/O MYELOPATHY OR RADICULOPA 08/01/2016 NOHEMI MOSS MD Ot Z79.899 OTHER NETBACKUP ENGINEER (CURRENT) DRUG THERAPY 08/05/2016 NOHEMI MOSS MD Ot M54.2 CERVICALGIA 08/05/2016 NOHEMI MOSS MD, Ot M54.2 CERVICALGIA 08/13/2016 NOHEMI MOSS MD, Ot M54.2 CERVICALGIA 08/13/2016 NOHEMI MOSS MD, Ot M54.2 CERVICALGIA 09/05/2016 NOHEMI MOSS MD, Ot M54.2 CERVICALGIA 09/09/2016 ELIAZAR GALLEGOS, DANIEL Gaona Ot 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, LEF 10/02/2016 ELIAZAR GALLEGOS, DANIEL Gaona Ot 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, LEF 10/22/2016 Mae Davis A 719.45 PAIN IN JOINT INVOLVING PELVIC REGION AND THIGH 10/22/2016 Mae Davis W 724.2 LUMBAGO 10/22/2016 Mae Davis A M25.552 PAIN IN LEFT HIP 10/22/2016 Mae Davis W M54.5 LOW BACK PAIN 12/06/2016 DIANA ESPINOSA MD Ot M25.552 PAIN IN LEFT HIP 12/06/2016 DIANA ESPINOSA MD Ot Z98.890 OTHER SPECIFIED POSTPROCEDURAL STATES 12/13/2016 DIANA ESPINOAS MD Ot M25.552 PAIN IN LEFT HIP 12/13/2016 DIANA ESPINOSA MD Ot Z98.890 OTHER SPECIFIED POSTPROCEDURAL STATES 12/16/2016 DIANA ESPINOSA MD Ot M25.552 PAIN IN LEFT HIP 12/16/2016 DIANA ESPINOSA MD Ot Z98.890 OTHER SPECIFIED POSTPROCEDURAL STATES 01/02/2017 DIANA ESPINOSA MD Ot M25.552 PAIN IN LEFT HIP 01/02/2017 DIANA ESPINOSA MD M Ot Z98.890 OTHER SPECIFIED POSTPROCEDURAL STATES 01/14/2017 DIANA ESPINOSA MD Ot M25.552 PAIN IN LEFT HIP 01/14/2017 DIANA ESPINOSA MD M Ot Z98.890 OTHER SPECIFIED POSTPROCEDURAL STATES 01/22/2017 DIANA ESPINOSA MD Ot M25.552 PAIN IN LEFT HIP 01/22/2017 DIANA ESPINOSA MD Ot Z98.890 OTHER SPECIFIED POSTPROCEDURAL STATES 01/31/2017 DIANA ESPINOSA MD Ot M25.552 PAIN IN LEFT HIP 01/31/2017 DIANA ESPINOSA MD Ot Z98.890 OTHER SPECIFIED POSTPROCEDURAL STATES 01/31/2017 DIANA ESPINOSA MD Ot M25.552 PAIN IN LEFT HIP 01/31/2017 DIANA ESPINOSA MD Ot Z98.890 OTHER SPECIFIED POSTPROCEDURAL STATES 04/29/2017 Eboni Roy W 272.4 OTHER AND UNSPECIFIED HYPERLIPIDEMIA 04/29/2017 Eboni Roy W E78.5 HYPERLIPIDEMIA, UNSPECIFIED 04/29/2017 Eboin Roy W 272.4 OTHER AND UNSPECIFIED HYPERLIPIDEMIA 04/29/2017 Kirill Eboni W E78.5 HYPERLIPIDEMIA, UNSPECIFIED 05/30/2017 ISA GALLEGOS, NOHEMI Black Ot M47.816 SPONDYLOSIS W/O MYELOPATHY OR RADICULOPA 06/18/2017 Kirill, Eboni W 780.4 DIZZINESS AND GIDDINESS 06/18/2017 Kirill, Eboni W R42 DIZZINESS AND GIDDINESS 06/18/2017 Kirill, Eboni W 780.4 DIZZINESS AND GIDDINESS 06/18/2017 Kirill, Eboni W R42 DIZZINESS AND GIDDINESS 06/19/2017 Kirill, Eboni W 282.3 OTHER HEMOLYTIC ANEMIAS DUE TO ENZYME DEFICIENCY 06/19/2017 Kirill, Eboni W 780.4 DIZZINESS AND GIDDINESS 06/19/2017 Kirill, Eboni W D55.2 ANEMIA DUE TO DISORDERS OF GLYCOLYTIC ENZYMES 06/19/2017 Kirill, Eboni W R42 DIZZINESS AND GIDDINESS 06/19/2017 Kirill, Eboni W 282.3 OTHER HEMOLYTIC ANEMIAS DUE TO ENZYME DEFICIENCY 06/19/2017 Kirill, Eboni W 780.4 DIZZINESS AND GIDDINESS 06/19/2017 Kirill, Eboni W D55.2 ANEMIA DUE TO DISORDERS OF GLYCOLYTIC ENZYMES 06/19/2017 Kirill, Eboni W R42 DIZZINESS AND GIDDINESS 10/21/2017 Brokob, Mae W 461 ACUTE SINUSITIS 10/21/2017 Brokob, Mae W 466.0 ACUTE BRONCHITIS 10/21/2017 Brokob, Mae W J01.90 ACUTE SINUSITIS, UNSPECIFIED 10/21/2017 Brokob, Mae W J20.9 ACUTE BRONCHITIS, UNSPECIFIED 10/21/2017 Brokob, Mae W 461 ACUTE SINUSITIS 10/21/2017 Brokob, Mae W 466.0 ACUTE BRONCHITIS 10/21/2017 Brokob, Mae W J01.90 ACUTE SINUSITIS, UNSPECIFIED 10/21/2017 Brokob, Mae W J20.9 ACUTE BRONCHITIS, UNSPECIFIED 10/25/2017 Liza Reyna 461.9 ACUTE SINUSITIS, UNSPECIFIED 10/25/2017 Liza Reyna A 466.0 ACUTE BRONCHITIS 10/25/2017 Liza Reyna J01.90 ACUTE SINUSITIS, UNSPECIFIED 10/25/2017 Liza Reyna J20.9 ACUTE BRONCHITIS, UNSPECIFIED 04/28/2018 Brokob, Mae W 285.9 ANEMIA, UNSPECIFIED 04/28/2018 Brokob, Mae W 719.45 PAIN IN JOINT INVOLVING PELVIC [place]ION AND THIGH 04/28/2018 Brokob, Mae W D64.9 ANEMIA, UNSPECIFIED 04/28/2018 Brokob, Mae W M25.559 PAIN IN UNSPECIFIED HIP 04/28/2018 Brokob, Mae W V70.0 ROUTINE GENERAL MEDICAL EXAMINATION AT A HEALTH CARE FACILITY 04/28/2018 Brokob, Mae W V76.19 OTHER SCREENING BREAST EXAMINATION 04/28/2018 Brokob Mae W Z00.00 ENCOUNTER FOR GENERAL ADULT MEDICAL EXAMINATION WITHOUT ABNORMAL FINDINGS 04/28/2018 Matikob Mae W Z12.39 ENCOUNTER FOR OTHER SCREENING FOR MALIGNANT NEOPLASM OF BREAST 04/28/2018 Brokob Mae W 285.9 ANEMIA, UNSPECIFIED 04/28/2018 Brokob, Mae W 719.45 PAIN IN JOINT INVOLVING PELVIC REGION AND THIGH 04/28/2018 Brokob, Mae W D64.9 ANEMIA, UNSPECIFIED 04/28/2018 Brokob, Mae W M25.559 PAIN IN UNSPECIFIED HIP 04/28/2018 Brokob, Mae W V70.0 ROUTINE GENERAL MEDICAL EXAMINATION AT A HEALTH CARE FACILITY 04/28/2018 Matikob, Mae W V76.19 OTHER SCREENING BREAST EXAMINATION 04/28/2018 Brokob Mae W Z00.00 ENCOUNTER FOR GENERAL ADULT MEDICAL EXAMINATION WITHOUT ABNORMAL FINDINGS 04/28/2018 Brokob Mae W Z12.39 ENCOUNTER FOR OTHER SCREENING FOR MALIGNANT NEOPLASM OF BREAST 05/04/2018 W 285.9 ANEMIA, UNSPECIFIED 05/04/2018 W 719.45 PAIN IN JOINT INVOLVING PELVIC REGION AND THIGH 05/04/2018 W D64.9 ANEMIA, UNSPECIFIED 05/04/2018 W M25.559 PAIN IN UNSPECIFIED HIP 05/04/2018 W V70.0 ROUTINE GENERAL MEDICAL EXAMINATION AT A HEALTH CARE FACILITY 05/04/2018 W V76.19 OTHER SCREENING BREAST EXAMINATION 05/04/2018 W Z00.00 ENCOUNTER FOR GENERAL ADULT MEDICAL EXAMINATION WITHOUT ABNORMAL FINDINGS 05/04/2018 W Z12.39 ENCOUNTER FOR OTHER SCREENING FOR MALIGNANT NEOPLASM OF BREAST 05/04/2018 W 285.9 ANEMIA, UNSPECIFIED 05/04/2018 W 719.45 PAIN IN JOINT INVOLVING PELVIC REGION AND THIGH 05/04/2018 W D64.9 ANEMIA, UNSPECIFIED 05/04/2018 W M25.559 PAIN IN UNSPECIFIED HIP 05/04/2018 W V70.0 ROUTINE GENERAL MEDICAL EXAMINATION AT A HEALTH CARE FACILITY 05/04/2018 W V76.19 OTHER SCREENING BREAST EXAMINATION 05/04/2018 W Z00.00 ENCOUNTER FOR GENERAL ADULT MEDICAL EXAMINATION WITHOUT ABNORMAL FINDINGS 05/04/2018 W Z12.39 ENCOUNTER FOR OTHER SCREENING FOR MALIGNANT NEOPLASM OF BREAST 05/04/2018 Kirill, Eboni W 719.45 PAIN IN JOINT INVOLVING PELVIC REGION AND THIGH 05/04/2018 Kirill, Eboni W M25.559 PAIN IN UNSPECIFIED HIP 05/04/2018 Kirill, Eboni W 719.45 PAIN IN JOINT INVOLVING PELVIC REGION AND THIGH 05/04/2018 Kirill, Eboni W M25.559 PAIN IN UNSPECIFIED HIP 07/24/2018 Kirill, Eboni W 796.4 OTHER ABNORMAL CLINICAL FINDINGS 07/24/2018 Kirill, Eboni W R82.99 OTHER ABNORMAL FINDINGS IN URINE 07/24/2018 Kirill, Eboin W 796.4 OTHER ABNORMAL CLINICAL FINDINGS 07/24/2018 Kirill, Eboni W R82.99 OTHER ABNORMAL FINDINGS IN URINE 01/20/2019 CM HELM DO Ot 719.43 JOINT PAIN-FOREARM 01/20/2019 ISA GALLEGOS, NOHEMI Black Ot M54.5 LOW BACK PAIN 01/20/2019 ISA GALLEGOS, NOHEMI Black Ot M54.5 LOW BACK PAIN 01/20/2019 ELIAZAR GALLEGOS, DANIEL Gaona Ot 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, LEF Procedures Code Description [place] [address] WART DESTRUCT 1-14 (CRYO) 04/27/2014 34843 SKIN TISSUE PROCEDURE 05/17/2014 78341 OXIMETRY 05/17/2014 Results Test Result Range Urine Culture - 05/30/16 18:22 PRELIM CULTURE RESULTS No Growth 24 hours FINAL CULTURE RESULTS <10,000 Gram Positive and Gram Negative Mixed Donna [id number] Further Workup done CULTURE SOURCE void Complete blood count (CBC) with automated white blood cell (WBC) differential - 06/01/16 16:40 Blood leukocytes automated count (number/volume) 10.3 10*3/uL 4.3-11.0 Blood erythrocytes automated count (number/volume) 4.45 10*6/uL 4.35-5.85 Venous blood hemoglobin measurement (mass/volume) 13.7 g/dL 11.5-16.0 Blood hematocrit (volume fraction) 41 % 35-52 Automated erythrocyte mean corpuscular volume 92 [foz_us] 80-99 Automated erythrocyte mean corpuscular hemoglobin (mass per erythrocyte) 31 pg 25-34 Automated erythrocyte mean corpuscular hemoglobin concentration measurement (mass/volume) 33 g/dL 32-36 Automated erythrocyte distribution width ratio 14.0 % 10.0- 14.5 Automated blood platelet count (count/volume) 318 10*3/uL 130-400 Automated blood platelet mean volume measurement 10.3 [foz_us] 7.4-10.4 Automated blood neutrophils/100 leukocytes 70 % 42-75 Automated blood lymphocytes/100 leukocytes 21 % 12-44 Blood monocytes/100 leukocytes 7 % 0-12 Automated blood eosinophils/100 leukocytes 2 % 0-10 Automated blood basophils/100 leukocytes 0 % 0-10 Blood neutrophils automated count (number/volume) 7.2 10*3 1.8-7.8 Blood lymphocytes automated count (number/volume) 2.1 10*3 1.0-4.0 Blood monocytes automated count (number/volume) 0.7 10*3 0.0- 1.0 Automated eosinophil count 0.2 10*3/uL 0.0-0.3 Automated blood basophil count (count/volume) 0.0 10*3/uL 0.0-0.1 Comprehensive metabolic panel - 06/01/16 16:40 Serum or plasma sodium measurement (moles/volume) 137 mmol/L 135-145 Serum or plasma potassium measurement (moles/volume) 4.1 mmol/L 3.6-5.0 Serum or plasma chloride measurement (moles/volume) 104 mmol/L 98-107 Carbon dioxide 23 mmol/L 21-32 Serum or plasma anion gap determination (moles/volume) 10 mmol/L 5-14 Serum or plasma urea nitrogen measurement (mass/volume) 10 mg/dL 7-18 Serum or plasma creatinine measurement (mass/volume) 0.85 mg/dL 0.60-1.30 Serum or plasma urea nitrogen/creatinine mass ratio 12 NRG Serum or plasma creatinine measurement with calculation of estimated glomerular filtration rate > NRG Serum or plasma glucose measurement (mass/volume) 110 mg/dL 70-105 Serum or plasma calcium measurement (mass/volume) 9.3 mg/dL 8.5-10.1 Serum or plasma total bilirubin measurement (mass/volume) 0.2 mg/dL 0.1-1.0 Serum or plasma alkaline phosphatase measurement (enzymatic activity/volume) 60 U/L 40-136 Serum or plasma aspartate aminotransferase measurement (enzymatic activity/volume) 16 U/L 5-34 Serum or plasma alanine aminotransferase measurement (enzymatic activity/volume) 14 U/L 0-55 Serum or plasma protein measurement (mass/volume) 7.2 g/dL 6.4-8.2 Serum or plasma albumin measurement (mass/volume) 4.4 g/dL 3.2-4.5 Serum or plasma C reactive protein measurement (mass/volume) - 06/01/16 16:40 Serum or plasma C reactive protein measurement (mass/volume) 0.26 mg/dL 0.00-0.50 Complete urinalysis with reflex to culture - 06/01/16 17:02 Urine color determination YELLOW NRG Urine clarity determination CLEAR NRG Urine pH measurement by test strip 6 5-9 Specific gravity of urine by test strip 1.020 1.016-1.022 Urine protein assay by test strip, semi-quantitative NEGATIVE NEGATIVE Urine glucose detection by automated test strip NEGATIVE NEGATIVE Erythrocytes detection in urine sediment by light microscopy 1+ NEGATIVE Urine ketones detection by automated test strip NEGATIVE NEGATIVE Urine nitrite detection by test strip NEGATIVE NEGATIVE Urine total bilirubin detection by test strip NEGATIVE NEGATIVE Urine urobilinogen measurement by automated test strip (mass/volume) NORMAL NORMAL Urine leukocyte esterase detection by dipstick 3+ NEGATIVE Automated urine sediment erythrocyte count by microscopy (number/high power field) NONE NRG Automated urine sediment leukocyte count by microscopy (number/high power field) [HPF] NRG Bacteria detection in urine sediment by light microscopy TRACE NRG Squamous epithelial cells detection in urine sediment by light microscopy 2-5 NRG Crystals detection in urine sediment by light microscopy NONE NRG Casts detection in urine sediment by light microscopy NONE NRG Mucus detection in urine sediment by light microscopy NEGATIVE NRG Complete urinalysis with reflex to culture YES NRG Urine drug screening test - 06/01/16 17:02 Urine phencyclidine detection by screening method NEGATIVE NEGATIVE Urine benzodiazepines detection by screening method POSITIVE NEGATIVE Urine cocaine detection NEGATIVE NEGATIVE Urine amphetamines detection by screening method NEGATIVE NEGATIVE Urine methamphetamine detection by screening method NEGATIVE NEGATIVE Urine cannabinoids detection by screening method NEGATIVE NEGATIVE Urine opiates detection by screening method NEGATIVE NEGATIVE Urine barbiturates detection NEGATIVE NEGATIVE Screening urine tricyclic antidepressants detection NEGATIVE NEGATIVE Urine methadone detection by screening method NEGATIVE NEGATIVE Urine oxycodone detection NEGATIVE NEGATIVE Urine propoxyphene detection NEGATIVE NEGATIVE Bacterial urine culture - 06/01/16 17:02 URINE CULTURE RESULTS 10,000/ML - 100,000/ML NRG Sed Rate - 08/27/16 12:10 Sed Rate 14 mm/hr 9-15 Lipid Panel - 04/29/17 06:35 C/HDL 5.0 3.7-6.7 Cholesterol 257 mg/dL 100-240 HDL 51 mg/dL 30-85 LDL-Calculated 184 mg/dL 0-100 Trig 112 mg/dL 35-160 VLDL 22 mg/dL 0-42 Thyroid Stimulating Hormone - 06/03/17 09:45 TSH 2.04 mIU/mL 0.32-5.00 Iron - 06/18/17 14:51 Iron 83 ug/dL 70-200 Mycoplasma - 10/21/17 10:33 Mycoplasma Negative Negative Sputum Culture - 10/21/17 10:33 PRELIM CULTURE RESULTS Abundant Gram Positive Mixed [id number] Fastidious organisms isolated at 24 hours FINAL CULTURE RESULTS NO Pathogens Isolated MEDIA PLATED Setup at 11:12 on 10/21/2017 C-Reactive Protein - 10/25/17 20:33 C-Reactive Protein 7.49 mg/dL 0.00-0.50 Urinalysis - 10/25/17 20:40 Icotest N/A Negative Urine Volume Urine Volume Sufficient (10mL) Urine Yeast No Yeast present Urine-Appearance Clear Clear Urine-Bacteria Negative Urine-Bilirubin Negative Negative Urine-Blood Negative Negative Urine-Color Yellow Colorless-Lt. Yellow Urine-Epithelial Cells 0-5/HPF Urine-Glucose Negative Negative Urine-Ketones Negative Negative Urine-Leukocytes Negative Negative Urine-Nitrite Negative Negative Urine-Other Urine Saved if Culture Needed (48hrs from time of collection) Urine-pH 7.0 5-8.5 Urine-Protein Negative Negative Urine-RBC Rare/HPF Urine-Specific [place] 1.015 1.000-1.030 Urine-WBC Nothing Seen on Microscopic Urobilinogen 0.2 0.2-1.0 Lactic Acid - 10/25/17 20:50 Lactic Acid 11.4 mg/dL 4.5-19.8 Blood Culture - 10/25/17 20:50 PRELIM CULTURE RESULTS Blood Culture Negative, No Growth Day 1 FINAL CULTURE RESULTS Blood Culture Negative, No Growth Day 5 MEDIA PLATED Blood Culture Media Position C44 CULTURE SOURCE RIGHT HAND Blood Culture - 10/25/17 20:50 PRELIM CULTURE RESULTS Blood Culture Negative, No Growth Day 1 FINAL CULTURE RESULTS Blood Culture Negative, No Growth Day 5 MEDIA PLATED Blood Culture Media Position C49 CULTURE SOURCE left arm Folate - 05/04/18 06:00 Folate 5.00 ng/mL 7.00-31.40 Vitamin D, 25 [place] - 05/04/18 06:00 Vitamin D, 25 OH 35.80 ng/mL 25.00-100.00 IFOBT Occult Blood,Screening - 07/04/18 10:22 IFOBT Screen Negative Negative Urinalysis - 07/24/18 11:12 Icotest N/A Negative Urine Volume Urine Volume Sufficient (10mL) Urine-Appearance Clear Clear Urine-Bacteria Trace Urine-Bilirubin Negative Negative Urine-Blood Negative Negative Urine-Color Yellow Colorless-Lt. Yellow Urine-Epithelial Cells 0-5/HPF Urine-Glucose Negative Negative Urine-Ketones Negative Negative Urine-Leukocytes Negative Negative Urine-Nitrite Negative Negative Urine-Other Urine Saved if Culture Needed (48hrs from time of collection) Urine-pH 6.5 5-8.5 Urine-Protein Negative Negative Urine-RBC Negative Urine-Specific [place] 1.010 1.000-1.030 Urine-WBC Negative Urobilinogen 0.2 E.U./dL 0.2-1.0 Encounters ACCT No. Visit Date/Time Discharge Status Pt. Type Provider Facility Loc./Unit Complaint [id number] 05/17/2014 15:47:00 05/17/2014 23:59:59 CLS Outpatient LASHONDA RITTER APRN [id number] 05/10/2014 13:18:00 05/10/2014 23:59:59 CLS Outpatient ROSITA STRATTON DO [id number] 04/27/2014 16:37:00 04/27/2014 23:59:59 CLS Outpatient ROSITA STRATTON DO [id number] 05/26/2013 14:44:00 05/26/2013 23:59:59 CLS Outpatient ROSITA STRATTON DO [id number] 06/03/2012 13:36:00 06/03/2012 23:59:59 [place] [id number] 04/14/2012 18:21:00 04/14/2012 23:59:59 CLS Outpatient TRUE DECKER APRN [id number] 01/20/2019 19:49:00 01/20/2019 20:35:00 DIS Emergency LIZA REYNA APRN [facility] ER L HIP PAIN [id number] 01/10/2017 11:28:00 01/31/2017 10:56:00 DIS Outpatient JESÚS GALLEGOS, DIANA Randolph [facility] REHAB ACETABULAR LABRUM TEAR, FEMORACETABULAR IMPINGEMEN [id number] 09/06/2016 17:00:00 09/06/2016 23:59:59 CLS Outpatient DANIEL PEREA MD [facility] RAD OTHER ARTICULAR CARTILAGE DISORDERS LT HIP [id number] 09/05/2016 12:55:00 09/05/2016 13:47:00 DIS Outpatient NOHEMI MOSS MD [facility] REHAB CERVICALGIA [id number] 07/19/2016 08:36:00 07/19/2016 10:11:00 DIS Outpatient NOHEMI MOSS MD [facility] CARD [id number] 06/28/2016 10:04:00 06/28/2016 11:22:00 DIS Outpatient NOHEMI MOSS MD [facility] CARD [id number] 06/01/2016 15:52:00 06/01/2016 18:02:00 DIS Emergency CHING RUBY MD [facility] ER MIGRAINE, BACK PAIN/NERVE BLOCKS WEARING OFF [id number] 05/08/2016 09:23:00 05/08/2016 09:55:00 DIS Emergency SANTHOSH CALI [facility] ER LEFT HIP PAIN [id number] 04/26/2016 09:08:00 04/26/2016 10:31:00 DIS Outpatient NOHEMI MOSS MD [facility] CARD SPONDYLOSIS [id number] 04/11/2016 15:08:00 04/11/2016 23:59:59 CLS Outpatient NOHEMI MOSS MD [facility] RAD LOW BACK PAIN [id number] 03/15/2016 08:54:00 03/15/2016 10:08:00 DIS Outpatient NOHEMI MOSS MD [facility] CARD SPONDYLOSIS [id number] 10/06/2015 08:09:00 10/06/2015 08:46:00 DIS Outpatient NOHEMI MOSS MD [facility] CARD SPONDYLOSIS W/O MYLOPATHY OR RADICULOPATHY [id number] 09/01/2015 08:15:00 09/01/2015 09:03:00 DIS Outpatient NOHEMI MOSS MD [facility] LUMBARGO [id number] 08/10/2015 12:33:00 08/10/2015 23:59:59 CLS Outpatient NOHEMI MOSS MD [facility] RAD LOW BACK PAIN [id number] 09/27/2014 10:08:00 09/27/2014 23:59:59 CLS Outpatient CM HELM DO Iraida [facility] RAD PAIN,L WRIST [id number] 06/14/2013 06:58:00 06/14/2013 11:50:00 DIS Outpatient JYOTSNA DE JESUS MD [facility] RIGHT KNEE CHONDROMALASIA PATELLA [id number] 05/26/2013 08:18:00 05/26/2013 23:59:59 CLS Outpatient REVEAL JYOTSNA GALLEGOS [facility] PREOP RIGHT KNEE CHONDROMALASIA PATELLA [id number] 03/08/2013 06:00:00 03/08/2013 10:10:00 DIS Outpatient JYOTSNA DE JESUS MD [facility] CHONDROMALASIA FEMORALAE LEFT KNEE [id number] 03/03/2013 08:44:00 03/03/2013 23:59:59 CLS Outpatient JYOTSNA DE JESUS MD [facility] PREOP CHONDROMALASIA FEMORALAE LEFT KNEE [id number] 02/03/2013 16:16:00 02/03/2013 23:59:59 CLS Outpatient [id number] 07/24/2018 11:09:00 07/24/2018 23:59:00 DIS Outpatient Eboni Roy [id number] 07/04/2018 10:19:00 07/04/2018 23:59:00 DIS Outpatient Eboni Roy [id number] 05/04/2018 08:38:00 05/04/2018 23:59:00 DIS Outpatient Eboni Roy [id number] 04/28/2018 14:24:00 04/28/2018 23:59:00 DIS Outpatient Mae Davis [id number] 10/25/2017 20:22:00 10/25/2017 22:10:00 [id number] 10/21/2017 10:29:00 10/21/2017 23:59:00 DIS Outpatient Mae Davis [id number] 06/19/2017 15:32:00 06/19/2017 23:59:00 DIS Outpatient Eboni Roy [id number] 06/18/2017 14:49:00 06/18/2017 23:59:00 DIS Outpatient Eboni Roy [id number] 06/03/2017 09:37:00 06/03/2017 23:59:00 DIS Outpatient Eboni Roy [id number] 04/29/2017 06:32:00 04/29/2017 23:59:00 DIS Outpatient Eboni Roy [id number] 10/22/2016 08:54:00 10/22/2016 09:03:00 DIS Outpatient Mae Davis [id number] 08/27/2016 11:54:00 08/27/2016 23:59:00 DIS Outpatient Eboni Roy [id number] 05/30/2016 18:21:00 05/30/2016 23:59:00 DIS Outpatient Eboni Roy [id number] 05/04/2018 05:58:23 Document Registration [id number] 10/22/2016 09:05:23 Document Registration [id number] 01/16/2018 11:30:00 01/16/2018 23:59:59 CLS Outpatient ROSITA STRATTON DO [facility] [id number] 09/27/2014 10:10:27 ACT Document Registration
== END 2019-01-20 20:35 | disposition home or self-care (01) ==
LOC: EDUNIT# 19:47 → ER 19:49
DX: M25.552 Pain in left hip (principal); E78.00 Pure hypercholesterolemia, unspecified; F43.10 Post-traumatic stress disorder, unspecified; F17.210 Nicotine dependence, cigarettes, uncomplicated; Z90.710 Acquired absence of both cervix and uterus; Z88.1 Allergy status to other antibiotic agents; Z79.52 Long term (current) use of systemic steroids
CPT/HCPCS: 73502; 96372

== ENCOUNTER 2020-11-15 10:08 | Emergency (ER) | payer MEDICAID ==
[~2020-11-15] VITALS: Ht 165 cm; Wt 57.0 kg
[~2020-11-15 10:08] MED LIST changes: -ACYC400T; +ACYC400T21; +METH-732 PO; -METH750T3 PO; -NABU500T; +NABU500T8; -TRAM50TA2 PO; +TRM50T PO
--- NOTE | 2020-11-15 11:18 | ED Hip Pain/Injury ---
General Chief Complaint: Hip/Pelvic Problems Stated Complaint: L LEG PAIN DIFFICULTY WALKING Nursing Triage Note: ARRIVED VIA AMB. COMPLAINS OF CHRONIC LEFT HIP, BACK, LEG PAIN. SEES A DR CARMICHAEL [facility] AND HAD A MRI DONE. IS SUPPOSE TO SEE THIS DR AGAIN ON THE FIRST. PT HAS NOT TAKEN ANYTHING FOR PAIN.. Source: patient Exam Limitations: no limitations (JJ SLOAN MED STUDENT) History of Present Illness Date Seen by Provider: November 15, 2020 Time Seen by Provider: 10:25 Initial Comments 65 y/o female with PSHx of L hip arthroscopy presents with acute on chronic L hip pain worsening over the last 2 weeks. Patient's current episode arose ~ 2 weeks ago when she tripped while walking backwards, landing on her L side; no LOC. Pain has since been getting worse, today coming in for persistent symptoms. Pain radiates across pelvis to R hip. Patient states she had an L hip arthroscopy 9 years ago for pain (though records show only a L knee arthroscopy) following which she has had fluctuating sharp/burning pain. Patient has since had multiple steroid injections which she states do not normally work, though she once had relief when given a steroid injection described as likely ilio- inguinal. Patient sees Dr. Carmichael at [place] for pain management, noting she had a MRIs done of her back, hips, and knees 2-3 weeks ago which showed "a cyst in the bone", when she questioned further about pain management, Dr. Carmichaels office set up and appointment for November 21 (6 days from now) to reevaluate the MRI, but pain worsened causing her to come in. Patient states she drove in today and was able to walk in though with significant trouble. Denies CP, palpitations, SOB, cough, abdominal pain, constipation, syncope or headache. (JJ SLOAN MED STUDENT) Allergies and Home Medications Allergies Coded Allergies: doxycycline (Unverified Allergy, Unknown, RASH, 06/01/16) Home Medications Alprazolam 0.5 Mg Tablet, 0.5 MG PO TID PRN PRN for ANXIETY, (Reported) PRN ANXIETY Cefuroxime Axetil 500 Mg Tablet, 500 MG PO BID Prescribed by: LIZA REYNA on 06/01/16 1740 Esomeprazole Mag Trihydrate 40 Mg Capsule., 40 MG PO DAILY, (Reported) Esomeprazole Magnesium 40 Mg Capsule.dr, 1 TAB PO DAILY, (Reported) Methocarbamol 750 Mg Tablet, 1 TAB PO DAILY PRN for PAIN, (Reported) Prednisone 20 Mg Tab, 40 MG PO DAILY Prescribed by: SANTHOSH LUGO on 05/08/16 1143 Tramadol HCl 50 Mg Tablet, 50 MG PO Q4H PRN for PAIN Prescribed by: SANTHOSH LUGO on 05/08/16 1143 Review of Systems Constitutional: No dizziness, No weakness EENTM: No eye pain, No vision loss Respiratory: No cough, No short of breath, No wheezing Cardiovascular: No chest pain, No palpitations, No syncope Gastrointestinal: No abdominal pain, No constipation, No nausea, No vomiting Genitourinary: No dysuria, No frequency Musculoskeletal: back pain (chronic), joint pain (L hip, radiation To R hip) Skin: No change in color, No rash Psychiatric/Neurological: Anxiety; Denies Headache; Numbness (chronic, mild, episodic), Tingling (chronic, mild, episodic) (JJ SLOAN STUDENT) Past Aabnbpz-Ceatee-Uzbjir Hx Patient Social History Alcohol Use: Denies Use Type Used: Cigarettes Recent Infectious Disease Expo: No Recent Hopitalizations: No (JJ SLOAN) Immunizations Up To Date Date of Influenza Vaccine: May 24, 2013 (JJ SLOAN) Seasonal Allergies Seasonal Allergies: No (JJ SLOAN) Past Medical History Surgeries: Yes (left hernia repair. right breast biopsy) Hysterectomy Respiratory: No Cardiac: Yes High Cholesterol Neurological: No Genitourinary: No Gastrointestinal: No Musculoskeletal: Yes (DJD LEFT KNEE) Chronic Back Pain Endocrine: No HEENT: No Cancer: No Psychosocial: Yes PTSD Integumentary: No Blood Disorders: No (JJ SLOAN) Family Medical History No Pertinent Family Hx (JJ SLOAN) Physical Exam Vital Signs Vital Signs - First Documented 11/15/20 10:15 Temp 37.0 Pulse 87 Resp 16 B/P (MAP) 129/91 (104) Pulse Ox 97 O2 Delivery Room Air (MIGNON DE GUZMAN MD) Vital Signs Capillary Refill : Less Than 3 Seconds (JJ SLOAN STUDENT) Height, Weight, BMI Height: 5'4.00" Weight: 130lbs. 0oz. 58.850788nz; 20.00 BMI Method:Stated General Appearance: No Apparent Distress, WD/WN HEENT: PERRL/EOMI, Pharynx Normal Neck: Full Range of Motion, Normal Inspection Cardiovascular: Regular Rate, Rhythm, No Edema Respiratory: Chest Non Tender, Lungs Clear, Normal Breath Sounds Peripheral Pulses: 2+ Carotid (R), 2+ Carotid (L), 2+ Dorsalis Pedis (R), 2+ Left Dors-Pedis (L), 2+ Radial Pulses (R), 2+ Radial Pulses (L) Gastrointestinal: Normal Bowel Sounds, No Organomegaly, Non Tender Back: No CVA Tenderness, No Vertebral Tenderness Extremity: Normal Capillary Refill, Normal Inspection, Other (L hip tenderness, tender over superior pelvis) Neurologic/Psychiatric: Alert, Oriented x3 Skin: Normal Color, Warm/Dry Lymphatic: No Adenopathy (JJ SLOAN MED STUDENT) Progress/Results/Core Measures Results/Orders My Orders Orders - MIGNON DE GUZMAN MD Pelvis/Rakesh Hips 5> Views (11/15/20 11:35) Ketorolac Injection (Toradol Injection) (11/15/20 14:00) (MIGNON DE GUZMAN MD) Vital Signs/I&O 11/15/20 10:15 Temp 37.0 Pulse 87 Resp 16 B/P (MAP) 129/91 (104) Pulse Ox 97 O2 Delivery Room Air (MIGNON DE GUZMAN MD) Blood Pressure Mean: 104 Departure Impression Primary Impression: Chronic left hip pain Disposition: 01 HOME, SELF-CARE Condition: Improved Departure-Patient Inst. Referrals: JUAN CHAVARRIA MD (PCP/Family) Primary Care Physician Patient Instructions: Chronic Pain Add. Discharge Instructions: Use ibuprofen up to 600 mg every 6 hours as needed for primary pain control unless otherwise directed by your orthopedist or primary care doctor to avoid NSAID medications. For pain not controlled by ibuprofen add Ultram (tramadol) as prescribed. Please be advised this medication can cause some sedation or constipation. Be careful when using this medication with other sedating medications. Seek advice from your pharmacist regarding taking multiple medications. Use a cane or other assistive device to help with walking. Keep your appointment with Dr. Carmichael as prescribed. Call with questions or concerns. Return to the emergency room if you have worsening symptoms. All discharge instructions reviewed with patient and/or family. Voiced understanding. Scripts Tramadol HCl (Ultram) 50 Mg Tablet 50 MG PO Q6H PRN for PAIN-MODERATE (5-7), #20 TAB Prov: MIGNON DE GUZMAN MD 11/15/20 JJ SLOAN MED STUDENT November 15, 2020 11:18 MIGNON DE GUZMAN MD November 15, 2020 13:54
--- NOTE | 2020-11-15 12:17 | Diagnostic Imaging Report ---
Exam: Pelvis and bilateral hip radiograph Exam date: 11/15/2020 COMPARISON: Pelvis radiograph 05/08/2016, left hip radiograph 01/20/2019 HISTORY: Fall hip pain. TECHNIQUE: Single view the pelvis with 2 views of both hips. FINDINGS: There is no acute fracture, dislocation, or destructive osseous process. Joint spaces are preserved. Soft tissues are normal. IMPRESSION: No acute osseous abnormality of the pelvis or hips. Dictated by: Dictated on workstation # [id number]
[2020-11-15] MEDS ORDERED: TRAM-42 PO (13:50)
[2020-11-15] MEDS ORDERED: KETOROLAC 30 MG/ML VIAL IM ONE (14:00)
[2020-11-15 14:08] VITALS: BP 129/91
== END 2020-11-15 14:08 | disposition home or self-care (01) ==
LOC: EDUNIT# 10:08 → ER 10:11
DX: G89.21 Chronic pain due to trauma (principal); M25.552 Pain in left hip; M54.9 Dorsalgia, unspecified; F43.10 Post-traumatic stress disorder, unspecified; Z79.891 Long term (current) use of opiate analgesic; Z79.899 Other long term (current) drug therapy; W01.0XXA Fall on same level from slipping, tripping and stumbling without subsequent striking against object, initial encounter
CPT/HCPCS: 73523

== ENCOUNTER → 2020-12-01 | Outpatient (CLI) | payer MEDICAID ==
[~2020-12-01] MED LIST changes: +TRAM-42 PO
--- NOTE | 2020-12-01 08:27 | Diagnostic Imaging Report ---
INDICATION: Right upper quadrant pain, nausea, vomiting, diarrhea TECHNIQUE: Multiple grayscale sonographic images were obtained of the right upper quadrant of the abdomen. CORRELATION STUDY: None FINDINGS: LIVER: There is uniform echotexture within the visualized portions of the liver. There is normal, hepatopedal direction of flow within the main portal vein. Liver length of 17 cm. GALLBLADDER: Borderline gallbladder wall thickening at 0.3 cm. No shadowing gallstones or pericholecystic fluid. COMMON BILE DUCT: Nondilated at 0.4 cm. PANCREAS: Visualized portions appearing unremarkable. AORTA/IVC: Not well visualized. RIGHT KIDNEY: 10.8 x 4.5 x 4.5 cm. No hydronephrosis. OTHER: None. IMPRESSION: 1. Negative for gallstones or bile duct dilatation. Gallbladder wall thickness upper limits of normal. 2. Otherwise, unremarkable appearing right upper quadrant abdominal ultrasound. Dictated by: Dictated on workstation # [id number]
== END ==
LOC: RAD 08:00
PROVIDERS: ATTEND Surgery
DX: R10.11 Right upper quadrant pain (principal); R11.2 Nausea with vomiting, unspecified; R19.7 Diarrhea, unspecified
CPT/HCPCS: 76705

== ENCOUNTER → 2020-12-11 | Outpatient (CLI) | payer MEDICAID ==
[~2020-12-11] MED LIST changes: +CATHETER FLUSH 10 ML SYR IV PRN
--- NOTE | 2020-12-11 14:37 | Diagnostic Imaging Report ---
INDICATION: Right upper quadrant pain with nausea and vomiting. TECHNIQUE: The patient was administered 5.5 mCi of technetium 99m Choletec intravenously and imaging over the abdomen was performed. At 1 hour, the patient ingested 8 ounces of Ensure and a gallbladder ejection fraction was calculated. The patient denied discomfort during the Ensure ingestion. FINDINGS: There is homogeneous uptake of activity by the liver with prompt excretion of activity into the gallbladder and common duct. There is normal passage of activity into the small bowel. The gallbladder ejection fraction is normal at 69%. IMPRESSION: Normal HIDA scan and gallbladder ejection fraction. Dictated by: Dictated on workstation # [id number]
== END ==
LOC: CARD 12:45
PROVIDERS: ATTEND Surgery
DX: R10.11 Right upper quadrant pain (principal); R11.2 Nausea with vomiting, unspecified
CPT/HCPCS: 78227; A9537

== ENCOUNTER 2020-12-20 08:31 | Outpatient (CLI) | payer MEDICAID ==
[~2020-12-20] VITALS: Ht 165.1 cm; Wt 54.5 kg
[~2020-12-20 08:31] MED LIST changes: -CATHETER FLUSH 10 ML SYR IV PRN; -HYDR-700; +HYDR-700 PO
[2020-12-20] MEDS ORDERED: PANT40TA2 PO (10:43)
[2020-12-20] MEDS ORDERED: IRON15TA3 PO (10:43)
[2020-12-20] MEDS ORDERED: FENO145T26 PO (10:43)
[2020-12-20] MEDS ORDERED: QUET300T2 PO (10:43)
[2020-12-21] MEDS ORDERED: OXYC1TAB16 PO (14:05)
== END 2020-12-20 12:17 | disposition home or self-care (01) ==
LOC: PREOP 08:31
PROVIDERS: ATTEND Surgery
DX: Z01.818 Encounter for other preprocedural examination (principal)

== ENCOUNTER 2020-12-21 12:36 | Day surgery (SDC) | payer MEDICAID ==
[~2020-12-21] VITALS: Ht 165.1 cm; Wt 56.8 kg
[2020-12-21] VITALS (11 sets, daily range): BP systolic 88–150; BP diastolic 55–110
[~2020-12-21 12:36] MED LIST changes: +FENO145T26 PO; +IRON15TA3 PO; +PANT40TA2 PO; +QUET300T2 PO; +ceFAZolin INJECTION 1,000 MG in WATER (STERILE) FOR INJECTION 10 ML IV ONE
[2020-12-21] MEDS: LACTATED RINGERS 1,000 ML IV PRN ×3 (13:05→17:27)
[2020-12-21] MEDS ORDERED: WATER (STERILE) FOR INJECTION 10 ML ONE (13:25)
[2020-12-21] MEDS ORDERED: ceFAZolin INJECTION 1,000 MG ONE (13:25)
--- NOTE | 2020-12-21 14:03 | Progress Note-Pre Operative ---
Pre-Operative Progress Note H&P Reviewed The H&P was reviewed, patient examined and no changes noted. Date Seen by Provider: Dec 21, 2020 Time Seen by Provider: 14:00 Date H&P Reviewed: Dec 21, 2020 Time H&P Reviewed: 13:55 Pre-Operative Diagnosis: Symptomatic biliary dyskinesia YESSY HORN APRN Dec 21, 2020 14:03
[2020-12-21] MEDS ORDERED: OXYC1TAB16 PO (14:05)
--- NOTE | 2020-12-21 14:05 | Discharge Inst-Surgical ---
D/C Lap Instructions-KIDO Reconcile Patient Problems Problems Reviewed?: Yes New, Converted, or Re-Newed RX: RX on Chart Follow Up Appt in 2 weeks Activity as tolerated No driving for 24 hours No driving while on pain medications Incentive Spirometry use every 2 hours while awake Regular Diet Symptoms to Report: Fever over 101 degree F, Nausea/Vomiting Infection Signs and Symptoms to report: Increased redness, Foul odor of wound, Increased drainage Bathing instructions: May shower Operative Area Clean/Dry; Keep incision clean/dry If any problems/questions: Contact your physician or go to Emergency Room YESSY HORN APRN Dec 21, 2020 14:05
[2020-12-21] MEDS ORDERED: ACETAMINOPHEN 325 MG TABLET PO PRN (14:15)
[2020-12-21] MEDS ORDERED: morphine INJ 10 MG/ML 1ML (SYR OR VIAL) IVP PRN (14:15)
[2020-12-21] MEDS ORDERED: ONDANSETRON 4 MG/2 ML (SDV) Z0FRAN IVP PRN ×2 (14:15→16:15)
[2020-12-21] MEDS ORDERED: LIDOCAINE/EPI 1%-1:100,000 (XYLOCAINE) 20ML ONE (14:16)
[2020-12-21] MEDS ORDERED: NEOSTIGMINE 3 MG/3 ML VIAL ONE (14:19)
[2020-12-21] MEDS ORDERED: ONDANSETRON 4 MG/2 ML (SDV) Z0FRAN ONE (14:19)
[2020-12-21] MEDS ORDERED: proPOfol 200 MG/20 ML (DIPRIVAN) VIAL IV ONE (14:19)
[2020-12-21] MEDS ORDERED: GLYCOPYRROLATE 0.2 MG/ML (ROBINUL) 2 ML VIAL ONE (14:19)
[2020-12-21] MEDS ORDERED: ROCURONIUM 10 MG/ML 5 ML SYRINGE IV ONE (14:19)
[2020-12-21] MEDS ORDERED: fentaNYL INJ 100 MCG/2 ML AMP ONE (14:19)
[2020-12-21] MEDS ORDERED: MIDAZOLAM 2 MG/2 ML (VERSED) VIAL ONE (14:19)
[2020-12-21] MEDS ORDERED: LIDOCAINE PF 2% 5 ML (XYLOCAINE) VIAL ONE (14:19)
--- NOTE | 2020-12-21 16:13 | Progress Note-Pre Operative ---
Pre-Operative Progress Note H&P Reviewed The H&P was reviewed, patient examined and no changes noted. Date Seen by Provider: Dec 21, 2020 Time Seen by Provider: 13:30 Date H&P Reviewed: Dec 21, 2020 Time H&P Reviewed: 13:55 Pre-Operative Diagnosis: sx biliary dyskinesia JESUSITA BOWEN MD Dec 21, 2020 16:13
[2020-12-21] MEDS ORDERED: MEPERIDINE (DEMEROL) INJ 50 MG/ML IVP ONE (16:15)
[2020-12-21] MEDS ORDERED: morphine INJ 10 MG/ML 1ML (SYR OR VIAL) IVP ONE (16:15)
[2020-12-21] MEDS ORDERED: fentaNYL INJ 100 MCG/2 ML AMP IVP ONE (16:15)
--- NOTE | 2020-12-21 17:27 | Progress Note-Post Operative ---
Post-Operative Progess Note Surgeon (s)/Telecommunications Operator (s) Surgeon JESUSITA BOWEN MD Telecommunications Operator: chetan jin MEDICAL COST CONSULTANT Pre-Operative Diagnosis sx biliary dyskinesia Post-Operative Diagnosis same Procedure & Operative Findings Date of Procedure 12/21/20 Procedure Performed/Findings laparoscopic Anesthesia Type get Estimated Blood Loss Estimated blood loss (mL): minimal Specimens/Packing Specimens Removed gallbladder JESUSITA BOWEN MD Dec 21, 2020 17:26
--- NOTE | 2020-12-21 17:41 | Anesthesia-General Post-Op ---
General Patient Condition Mental Status/LOC: Same as Preop Cardiovascular: Satisfactory Nausea/Vomiting: Absent Respiratory: Satisfactory Pain: Controlled Complications: Absent Post Op Complications Complications None Follow Up Care/Instructions Patient Instructions None needed. Anesthesia/Patient Condition Patient Condition Patient is doing well, no complaints, stable vital signs, no apparent adverse anesthesia problems. No complications reported per nursing. MERCEDES LUCIO CRNA Dec 21, 2020 17:41
[2020-12-21] MEDS: oxyCODONE/APAP 5/325MG (PERCOCET 5) TABLET PO PRN ×2 (18:19→18:48)
--- NOTE | 2020-12-21 21:50 | OPERATIVE REPORT ---
DATE OF SERVICE: 12/21/2020 ATTENDING PRIMARY CARE PHYSICIAN: Eboni Roy MD PREOPERATIVE DIAGNOSIS: Symptomatic biliary dyskinesia. POSTOPERATIVE DIAGNOSIS: Symptomatic biliary dyskinesia. PROCEDURE: Laparoscopic cholecystectomy. SURGEON: Jesusita Bowen MD WING SCORER: Facundo Mccall APRN ANESTHESIA: General endotracheal. ESTIMATED BLOOD LOSS: Minimal. FINDINGS: Distended gallbladder, small gallstones. DISPOSITION: The patient tolerated the procedure well. INDICATIONS: The patient is a 65-year-old female with a 2-year history of crampy abdominal pain, diarrhea as well as nausea. She states that she will have episodes of diarrhea 5 to 6 times and this usually follows eating food. She has tried multiple different regimens including Imodium, fiber supplementation as well as antibiotics including metronidazole; however, no success. She also does report symptoms of bloating after meals and also does have a history of gastroesophageal reflux disease and has been on Nexium for years; however, this has become less effective. We then switched her to Protonix and states that her heartburn type of symptoms have slightly improved over time; however, she continues to have the nausea and diarrhea. She did have a colonoscopy 4 years ago, which did show diverticulosis; however, no other abnormalities. An ultrasound of the gallbladder did not show any gallstones and then, she underwent a HIDA scan and after the Kinevac analogue, she did have an episode of diarrhea as well as nausea, which would be considered a positive test for biliary dyskinesia. DESCRIPTION OF PROCEDURE: The patient was brought to the operating room, laid supine on the table. After adequate IV pain and sedative medications and general endotracheal intubation, the abdomen was prepped and draped in standard surgical fashion. A 0.5% Marcaine with epinephrine was then used to anesthetize the overlying skin in the left upper abdominal quadrant and a transverse skin incision made using a 15 blade. An 0 silk suture was applied to the medial aspect incision for retraction and a Veress needle inserted with a low opening pressure of 0 mmHg and the abdomen was then insufflated to 15 mmHg pressure. The Veress needle removed and a 5 mm XL trocar placed followed by a 5 mm 45-degree angle laparoscope visualizing the peritoneal cavity. The patient was then placed in reverse Trendelenburg position as well as plane right side up, left side down. The fundus of the gallbladder was then retracted anteriorly and superiorly. There were omental adhesions towards the fundus of the gallbladder, which were taken down with blunt dissection. The hepatoduodenal ligament was then opened using blunt dissection as well as electrocautery on hook instrument as well as the [place] dissector. The entire critical view of safety was identified including the triangle of Calot as well as the cystic duct and artery as the only two structures going into the gallbladder as well as the cystic plate behind the proximal gallbladder. A timeout was then taken and the cystic duct and artery were then clipped proximally and distally and cut with EndoShears. The gallbladder was then dissected off the liver bed using cautery on hook instrument with visualization of good hemostasis as well as no leaking ducts of Luschka. The gallbladder was removed through the 10 mm port site using an EndoCatch bag. The 10 mm port site fascia and peritoneum were then closed under direct visualization using a Andrew-Milton device and 0 Vicryl suture. The abdomen was then desufflated and remaining ports removed. All skin incisions were closed using 4-0 Monocryl running subcuticular sutures. Wounds were then cleaned and covered with Dermabond. The patient tolerated the procedure well. We will start IV and oral pain medication as well as a clear liquid diet. Once she is tolerating clears, has good pain control with oral pain medications, ambulating well, we will discharge her home. She will be instructed to do no heavy lifting or exertion for the next two weeks. Job ID: [id number] DocumentID: [id number] Dictated Date: 12/21/2020 17:41:01 Art Manager Date: 12/21/2020 21:50:39 Dictated By: JESUSITA BOWEN MD
--- NOTE | 2020-12-22 10:10 | HISTORY AND PHYSICAL ---
DATE OF SERVICE: 12/21/2020 DATE OF ADMISSION: 12/21/2020. ATTENDING PRIMARY CARE PHYSICIAN: Eboni Roy MD HISTORY OF PRESENT ILLNESS: The patient is a 65-year-old female who has had a 2-year history of crampy abdominal pain, diarrhea as well as nausea. She states that she goes 5 to 6 times a day and is usually watery and usually follows a meal. She has tried multiple different regimens including Imodium, fiber supplementation as well as antibiotics, which was metronidazole; however, no success. She also does have a history of bloating after meals as well as a history of gastroesophageal reflux disease and states that she has been on Nexium for years; however, this has become less effective. We have switched over to Protonix and she states that her heartburn type of symptoms have slightly improved over time; however, she continues to have the nausea as well as diarrhea. She also did have a colonoscopy 4 years ago, which showed diverticulosis; however, no other abnormalities. An ultrasound of the gallbladder did not show any stones; however, she underwent a HIDA scan and after the Kinevac analogue, she did have episode of diarrhea as well as nausea, which would be considered a positive test for biliary dyskinesia. PAST MEDICAL HISTORY: Melanoma, anxiety, hypercholesterolemia, irritable bowel syndrome, gastroesophageal reflux disease, PTSD. PAST SURGICAL HISTORY: Total hysterectomy in 1992, excision melanoma, right lower extremity 2008, bilateral knee arthroscopy 2009, left hip arthroscopy 2016, left wrist carpal tunnel release. ALLERGIES: DOXYCYCLINE. MEDICATIONS: Viibryd 40 mg daily, fenofibrate daily, hydroxyzine b.i.d., alprazolam 1 mg b.i.d., quetiapine 300 mg daily, Protonix 40 mg daily. SOCIAL HISTORY: Positive smoke 50 pack years. Negative alcohol. FAMILY HISTORY: Father, lymphoma. Sister with breast cancer. VITAL SIGNS: Stable. Blood pressure 128/81. Current weight 128.7 pounds at 5 feet 5 inches and a body mass index of 21.4. REVIEW OF SYSTEMS: Well-nourished female, in no acute distress. She is not experiencing any shortness of breath or difficulty breathing. No chest pain, palpitations, diaphoresis. Daily episodes of nausea and vomiting with crampy abdominal pain usually following a meal. No red blood per rectum. No mucusy stools. She also does have episodes of nausea; however, no vomiting. No fever, chills, no recent inadvertent weight loss. All other review of systems negative. PHYSICAL EXAMINATION: CHEST: Clear. Good breath sounds bilaterally. HEART: Regular, no murmurs. EXTREMITIES: No lower extremity edema, negative Homans sign. HEENT: No scleral icterus. NECK: No cervical lymphadenopathy. ABDOMEN: Soft, nondistended. There is mild discomfort in the upper quadrants of the abdomen, no peritoneal signs. No hernias. SKIN: Warm, dry. ASSESSMENT AND PLAN: A 65-year-old female with symptomatic biliary dyskinesia. The natural history of gallbladder disease was explained to the patient including the risks and benefits of surgery and she is in full understanding of this and would like to proceed with laparoscopic cholecystectomy, which we will schedule. Job ID: [id number] DocumentID: [id number] Dictated Date: 12/19/2020 16:36:56 Wool Supplier Date: 12/19/2020 16:49:26 Dictated By: JESUSITA BOWEN MD <Dictated by JESUSITA BOWEN MD> <Electronically signed by JESUSITA BOWEN MD> 12/19/20 1707 MTDD
== END 2020-12-21 19:20 | disposition home or self-care (01) ==
LOC: SDC 12:36
PROVIDERS: ATTEND Surgery
DX: K80.10 Calculus of gallbladder with chronic cholecystitis without obstruction (principal); K21.9 Gastro-esophageal reflux disease without esophagitis; F43.10 Post-traumatic stress disorder, unspecified; F41.0 Panic disorder [episodic paroxysmal anxiety]; E78.00 Pure hypercholesterolemia, unspecified; K58.9 Irritable bowel syndrome, unspecified; Z85.820 Personal history of malignant melanoma of skin; Z79.899 Other long term (current) drug therapy; Z98.890 Other specified postprocedural states
CPT/HCPCS: 87081

== ENCOUNTER 2021-05-31 15:04 | Emergency (ER) | payer MEDICAID ==
[~2021-05-31] VITALS: Ht 165 cm; Wt 58.0 kg
[~2021-05-31 15:04] MED LIST changes: +DICY20TA; -DICY20TA10; +OXYC1TAB16 PO; -SULF1TAB35 PO; +SULF1TAB38 PO; +TIZA-186; -TIZA4TAB4; -ceFAZolin INJECTION 1,000 MG in WATER (STERILE) FOR INJECTION 10 ML IV ONE
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
[2021-05-31] MEDS ORDERED: LACTATED RINGERS 1,000 ML IV SCH (15:30)
[2021-05-31 15:43] LABS: BASOPHILS # (AUTO) 0.1 10^3/uL (0.0-0.1); BASOPHILS % (AUTO) 1 % (0-10); EOSINOPHILS # (AUTO) 0.2 10^3/uL (0.0-0.3); EOSINOPHILS % (AUTO) 2 % (0-10); HEMATOCRIT 36 % (35-52); HEMOGLOBIN 11.8 g/dL (11.5-16.0); LYMPHOCYTES # (AUTO) 2.2 X 10^3 (1.0-4.0); LYMPHOCYTES % (AUTO) 32 % (12-44); MEAN CORPUSCULAR HEMOGLOBIN 29 pg (25-34); MEAN CORPUSCULAR HGB CONC 33 g/dL (32-36); MEAN CORPUSCULAR VOLUME 90 fL (80-99); MEAN PLATELET VOLUME 11.2 fL (9.0-12.2); MONOCYTES # (AUTO) 0.6 X 10^3 (0.0-1.0); MONOCYTES % (AUTO) 9 % (0-12); NEUTROPHILS # (AUTO) 3.9 X 10^3 (1.8-7.8); NEUTROPHILS % (AUTO) 56 % (42-75); PLATELET COUNT 351 10^3/uL (130-400)
[2021-05-31 15:53] LABS: ALBUMIN 4.1 GM/DL (3.2-4.5); POTASSIUM 3.9 MMOL/L (3.6-5.0)
[2021-05-31 15:55] LABS: CALCIUM 9.4 MG/DL (8.5-10.1)
[2021-05-31 15:56] LABS: TOTAL PROTEIN 7.3 GM/DL (6.4-8.2)
[2021-05-31 15:58] LABS: BILIRUBIN,TOTAL 0.2 MG/DL (0.1-1.0)
[2021-05-31 15:59] LABS: CREATININE SERUM 0.85 MG/DL (0.60-1.30)
[2021-05-31] MEDS ORDERED: HYOS0.1283 SL (16:23)
[2021-05-31] MEDS ORDERED: FIDA200T PO (16:23)
[2021-05-31 16:25] VITALS: BP 113/90
== END 2021-05-31 16:25 | disposition home or self-care (01) ==
LOC: EDUNIT# 15:04 → ER 15:06
DX: R19.7 Diarrhea, unspecified (principal); E78.00 Pure hypercholesterolemia, unspecified; K21.9 Gastro-esophageal reflux disease without esophagitis; F41.9 Anxiety disorder, unspecified; G89.29 Other chronic pain; M54.9 Dorsalgia, unspecified; Z79.899 Other long term (current) drug therapy; Z79.891 Long term (current) use of opiate analgesic
CPT/HCPCS: 36415; 80053; 85025; 87324; 87449

== ENCOUNTER 2021-07-29 13:56 | Emergency (ER) | payer MEDICAID ==
[~2021-07-29] VITALS: Ht 165 cm; Wt 56.8 kg
[~2021-07-29 13:56] MED LIST changes: +FIDA200T PO; +HYOS0.1283 SL
[2021-07-29 14:07] VITALS: BP 113/89
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
[2021-07-29] MEDS ORDERED: fentaNYL INJ 100 MCG/2 ML AMP IVP ONE (14:30)
[2021-07-29] MEDS ORDERED: ACETAMINOPHEN 500 MG TAB (TYLENOL) PO ONE (14:30)
[2021-07-29 14:34] LABS: BASOPHILS # (AUTO) 0.1 10^3/uL (0.0-0.1); BASOPHILS % (AUTO) 1 % (0-10); EOSINOPHILS # (AUTO) 0.5 10^3/uL (0.0-0.3); EOSINOPHILS % (AUTO) 9 % (0-10); HEMATOCRIT 31 % (35-52); HEMOGLOBIN 9.9 g/dL (11.5-16.0); LYMPHOCYTES # (AUTO) 1.6 X 10^3 (1.0-4.0); LYMPHOCYTES % (AUTO) 27 % (12-44); MEAN CORPUSCULAR HEMOGLOBIN 29 pg (25-34); MEAN CORPUSCULAR HGB CONC 32 g/dL (32-36); MEAN CORPUSCULAR VOLUME 89 fL (80-99); MONOCYTES # (AUTO) 0.5 X 10^3 (0.0-1.0); MONOCYTES % (AUTO) 8 % (0-12); NEUTROPHILS # (AUTO) 3.2 X 10^3 (1.8-7.8); NEUTROPHILS % (AUTO) 55 % (42-75); PLATELET COUNT 389 10^3/uL (130-400); WHITE BLOOD COUNT 5.9 10^3/uL (4.3-11.0)
[2021-07-29 14:44] LABS: ALBUMIN 3.9 GM/DL (3.2-4.5)
[2021-07-29 14:45] LABS: CALCIUM 9.5 MG/DL (8.5-10.1)
[2021-07-29 14:48] LABS: BILIRUBIN,TOTAL 0.3 MG/DL (0.1-1.0)
[2021-07-29 14:50] LABS: CREATININE SERUM 0.95 MG/DL (0.60-1.30)
--- NOTE | 2021-07-29 15:05 | Diagnostic Imaging Report ---
EXAMINATION: Left hip, 2 views. COMPARISON: January 20, 2019. HISTORY: 66-year-old female, left hip pain. FINDINGS: There is a left total hip prosthesis. The hardware appears intact. There is no periprosthetic lucency. There is no identified acute fracture. IMPRESSION: Intact left hip prosthesis without identified complication or other acute bony abnormality. Dictated by: Dictated on workstation # [id number]
--- NOTE | 2021-07-29 15:13 | Diagnostic Imaging Report ---
PROCEDURE: CT lumbar spine without contrast. TECHNIQUE: Multiple contiguous axial images were obtained through the lumbar spine without the use of intravenous contrast. Sagittal and coronal reformations were then performed. Auto Exposure Controls were utilized during the CT exam to meet ALARA standards for radiation dose reduction. INDICATION: Leg pain and altered sensation. COMPARISON: None available. FINDINGS: Normal alignment of the lumbar spine. No fracture is present. No ankylosis. Severe degenerative disc disease at L5-S1 where there is complete intervertebral height loss and posterior endplate ridging causing mild spinal stenosis. No high-grade spinal stenosis. Mild to moderate bilateral neuroforaminal narrowing at L4-L5 and L5-S1 due to degenerative disc disease and intervertebral height loss. SI joints are normal in appearance. No sacral insufficiency fracture. No concerning abnormality in the retroperitoneum. IMPRESSION: 1. No fracture within the lumbar spine. 2. Degenerative changes in the lower lumbar spine cause [id number] spinal stenosis and neuroforaminal narrowing. There does not appear to be high-grade spinal stenosis by non-myelogram CT. Dictated by: Dictated on workstation # [id number]
[2021-07-29] MEDS ORDERED: ONDANSETRON 4 MG/2 ML (SDV) Z0FRAN ONE (15:30)
[2021-07-29] MEDS ORDERED: ONDANSETRON 4 MG/2 ML (SDV) Z0FRAN IVP ONE (16:00)
[2021-07-29] MEDS ORDERED: METH4TAB10 PO (16:10)
[2021-07-29] MEDS ORDERED: ONDA4TAB11 PO (16:10)
[2021-07-29] MEDS ORDERED: diphenhydrAMINE 50 MG/ML INJ (BENADRYL) IVP ONE (16:15)
[2021-07-29] MEDS ORDERED: methylPREDNISolone 125 MG (Solu-MEDROL) VIAL IVP ONE (16:15)
[2021-07-29] MEDS ORDERED: PROMETHAZINE INJ 25 MG/ML (PHENERGAN) AMP IVP ONE (16:15)
[2021-07-29] MEDS ORDERED: PROMETHAZINE 25 MG (PHENERGAN) TAB PO ONE (16:30)
== END 2021-07-29 16:38 | disposition home or self-care (01) ==
LOC: EDUNIT# 13:56 → ER 13:57
DX: M54.32 Sciatica, left side (principal); K21.9 Gastro-esophageal reflux disease without esophagitis; F41.9 Anxiety disorder, unspecified; E78.00 Pure hypercholesterolemia, unspecified; Z96.642 Presence of left artificial hip joint
CPT/HCPCS: 36415; 72131; 73502; 80053; 83735; 85025; 86141

== ENCOUNTER 2021-08-29 08:57 | Emergency (ER) | payer MEDICAID ==
[~2021-08-29] VITALS: Ht 165 cm; Wt 53.0 kg
[~2021-08-29 08:57] MED LIST changes: +METH4TAB10 PO; +ONDA4TAB11 PO
--- NOTE | 2021-08-29 09:52 | ED Lower Extremity ---
General Chief Complaint: Lower Extremity Stated Complaint: L FOOT / LEG PAIN - HIGH BP Nursing Triage Note: ARRIVED VIA AMB WITH COMPLAINTS OF LEFT LOWR LEG PAIN THAT GOES DOWN TO HER FOOT. STATES SHE HAD LEFT HIP SURGERY 7 WEEKS AGO AND HER SIATIC NERVE WAS STRETCHED TO FAR. ALSO COMPLAINS OF HYPERTENSION. Source: patient Exam Limitations: no limitations (ROXANNE ALEJO MED STUDENT) History of Present Illness Date Seen by Provider: Aug 29, 2021 Time Seen by Provider: 09:40 Initial Comments Patient is a 66 year old female who presents to ED with complaints of left leg/foot pain and head throbbing/pulsations. She reports that she had a hip replacement 7 weeks ago over in [place], [place] and the day of surgery developed left sided sciatica. She reports the surgeon told her he stretched the nerve a bit too much during the surgery. Report having been prescribed lyrica and gabapentin but didnt' like how they made her feel and developed blurry vision while on those so is no longer taking them. Her surgeons' PA called her back this am and said they wouldn't prescribe her a course of steroids if she was hypertensive because it could exacerbate the blood pressure. Patient reports being seen here in the ED about one month ago and was given steroids with some improvement in her symptoms. States the left leg pain is constant and burning/stabbing. Has been taking mobic at home without any improvement in the pain. Reports the pain to be a 10/10. States uses a walker now and is unable to bear weight on left leg due to pain. States she had high blood pressure at home but had no device to actually check her BP at home. Denies blurry vision, nausea, diarrhea, and SOB. Onset: other (7 weeks ago) Severity: severe Pain/Injury Location: bilateral leg Method of Injury: other (Post op) Modifying Factors: Improves With Jarring, Improves With Movement (ROXANNE ALEJO MED STUDENT) Allergies and Home Medications Allergies Coded Allergies: doxycycline (Unverified Allergy, Unknown, RASH, 12/20/20) Patient Home Medication List Home Medication List Reviewed: Yes (JOYCE LIU MD) Alprazolam (Xanax) 0.5 Mg Tablet, 0.5-1 MG PO BID PRN for ANXIETY, (Reported) Entered as Reported by: CHRISTIANO GALLEGOS on 03/03/13 0911 Esomeprazole Mag Trihydrate (Nexium) 40 Mg Capsule.dr, 40 MG PO DAILY, (Reported) Entered as Reported by: CHRISTIANO GALLEGOS on 03/03/13 0911 Fenofibrate Nanocrystallized (Fenofibrate) 145 Mg Tablet, 145 MCG PO DAILY, (Reported) Entered as Reported by: JOANA HERNANDEZ on 12/20/20 1043 Fidaxomicin (Dificid) 200 Mg Tablet, 200 MG PO BID Prescribed by: LIZA REYNA on 05/31/21 162 Hydroxyzine HCl (Hydroxyzine HCl) 25 Mg Tablet, 25 MG PO BID, (Reported) Entered as Reported by: DANY HENRIQUEZ on 05/08/16 0957 Hyoscyamine Sulfate (Levsin-Sl) 0.125 Mg Tab.subl, 0.125 MG SL Q4H PRN for CRAMPS Prescribed by: LIZA REYNA on 05/31/21 162 Iron,Carbonyl (Iron Chews) 15 Mg Tab.chew, 45 MG PO DAILY, (Reported) Entered as Reported by: JOANA HERNANDEZ on 12/20/20 1043 Methylprednisolone (Methylprednisolone Dose Pack) 4 Mg Tab.ds.pk, 4 MG PO UD Prescribed by: VICENTE ECHEVARRIA on 07/29/21 1610 Ondansetron (Ondansetron Odt) 4 Mg Tab.rapdis, 4 MG PO Q6H PRN for NAUSEA/VOMITING Prescribed by: VICENTE ECHEVARRIA on 07/29/21 1610 Oxycodone HCl/Acetaminophen (Percocet 7.5-325 mg Tablet) 1 Each Tablet, 1 TAB PO Q4H PRN for PAIN-MODERATE Prescribed by: YESSY HORN on 12/21/20 1405 Pantoprazole Sodium (Protonix) 40 Mg Tablet.dr, 40 MG PO DAILY, (Reported) Entered as Reported by: JOANA HERNANDEZ on 12/20/20 1043 Quetiapine Fumarate (Seroquel) 300 Mg Tablet, 300 MG PO HS, (Reported) Entered as Reported by: JOANA HERNANDEZ on 12/20/20 1043 Vilazodone Hydrochloride (Viibryd) 40 Mg Tablet, (Reported) Entered as Reported by: DANY HENRIQUEZ on 05/08/16 0957 Review of Systems Constitutional: no symptoms reported; No chills, No diaphoresis, No fever EENTM: no symptoms reported; No blurred vision, No double vision Respiratory: No cough, No short of breath Cardiovascular: No chest pain, No edema; palpitations (occuring several times per day) Gastrointestinal: No abdominal pain, No constipation, No diarrhea Genitourinary: no symptoms reported; No dysuria, No frequency Musculoskeletal: other (left sided leg and foot pain post hip arthroplasty 7 weeks ago. ) Psychiatric/Neurological: Anxiety; Denies Depressed, Denies Numbness (ROXANNE ALEJO [employer] STUDENT) All Other Systems Reviewed Negative Unless Noted: Yes (YADIRA ALEJOToothpick STUDENT) Past Fhcdjbz-Swkopj-Ysuphy Hx Patient Social History Tobacco Use?: No (Quit smoking 8 weeks ago) Smoking Status: Former Smoker Smokeless Tobacco Frequency: Never a User Use of E-Cig and/or Vaping dev: No Substance use?: No Alcohol Use?: No (YADIRA ALEJOToothpick STUDENT) Immunizations Up To Date Tetanus Booster (TDap): Unknown Influenza Vaccine Up-to-Date: Yes; Up-to-Date (ROXANNE ALEJO [employer] STUDENT) Seasonal Allergies Seasonal Allergies: Yes (YADIRA ALEJOToothpick STUDENT) Past Medical History Surgeries: Yes (left hernia repair. right breast biopsy, L HIP LAPAROSCOPY) Hysterectomy Respiratory: No Currently Using CPAP: No Currently Using BIPAP: No Cardiac: Yes High Cholesterol Neurological: No : No Reproductive Disorders: No Female Reproductive Disorders: Denies PROJECT DEVELOPMENT DIRECTOR History: Hysterectomy Genitourinary: No Gastrointestinal: Yes Gastroesophageal Reflux, Chronic Diarrhea, Hiatal Hernia Musculoskeletal: Yes (DJD LEFT KNEE) Chronic Back Pain Endocrine: No HEENT: No Cancer: No Psychosocial: Yes (PANIC DISORDER) Anxiety, PTSD Integumentary: No Blood Disorders: No (YADIRA ALEJOToothpick STUDENT) Family Medical History No Pertinent Family Hx (ROXANNE ALEJO [employer] STUDENT) Physical Exam Vital Signs Vital Signs - First Documented 08/29/21 09:21 Temp 35.3 Pulse 71 Resp 16 B/P (MAP) 124/79 (94) Pulse Ox 97 O2 Delivery Room Air (JOYCE LIU MD) Vital Signs Capillary Refill : Less Than 3 Seconds (ROXANNE ALEJO [employer] STUDENT) Height, Weight, BMI Height: 5'4.00" Weight: 130lbs. 0oz. [id number]; 19.00 BMI Method:Stated General Appearance: WD/WN, no apparent distress HEENT: PERRL/EOMI, pharynx normal Neck: non-tender, full range of motion Cardiovascular: normal peripheral pulses, regular rate, rhythm, no edema Respiratory: chest non-tender, normal breath sounds, no respiratory distress Gastrointestinal: normal bowel sounds, non tender, soft; No distended, No guarding, No rebound, No tenderness Hips: bilateral hip non-tender; left hip normal inspection (left hip scar post surgery) Legs: left leg pain Knees: bilateral knee non-tender, bilateral knee normal inspection, bilateral knee normal range of motion, bilateral knee no evidence of injury Ankles: bilateral ankle non-tender, bilateral ankle normal inspection, bilateral ankle normal range of motion; left ankle pain Feet: bilateral foot non-tender, bilateral foot normal inspection, bilateral foot normal range of motion; left foot pain Neurologic/Tendon: other (left lower extremity painful to palpation. Able to wiggle toes. Able to dorsiflex and plantarflex.) Neurologic/Psychiatric: alert, oriented x 3 Skin: normal color, warm/dry Lymphatic: no adenopathy (Head and Neck) (ROXANNE ALEJO MED STUDENT) Progress/Results/Core Measures Results/Orders My Orders Orders - JOYCE LIU MD Prednisone Tablet (Deltasone Tablet) (08/29/21 10:00) Lidocaine 4% Patch (Salonpas 4% Patch) (08/30/21 09:00) Fentanyl Inj (Sublimaze Injection) (08/29/21 10:00) (JOYCE LIU MD) Vital Signs/I&O 08/29/21 08/29/21 09:21 10:47 Temp 35.3 Pulse 71 77 Resp 16 16 B/P (MAP) 124/79 (94) 106/72 Pulse Ox 97 98 O2 Delivery Room Air Room Air (JOYCE LIU MD) Blood Pressure Mean: 94 Progress Progress Note : Time: 10:07 Progress Note Patient is a very anxious 66-year-old who presents to the emergency room with a chief complaint of left hip pain that is chronic for 7 weeks since a hip replacement surgery. Patient states that all opiate medications cause headache. She was recently on Lyrica and gabapentin but could not tolerate these secondary to also worsening headache as well as slurred speech and inability to be able to read a sentence on her computer. She has tried [id number] IcyHot. She has not tried Voltaren gel or lidocaine patches. She is currently not on steroids but states she did take some that seem to help within recent weeks. She contacted her orthopedic surgeon's office today and they told her they would restart her on steroids if her blood pressure was normal, she was concerned that it was quite elevated today. She does have a mild head discomfort due to her blood pressure being in the 120s when normally she is in the 98 range systolic. No recent complaints of fevers, chills, burning with urination, diarrhea. She states she has [id number] in her foot and lower leg and it is painful to bear weight. No incontinence. No urinary retention. No recent traumas or falls on the leg. Physical exam is remarkable for pain and tenderness to palpation over the left SI joint. No erythema, no rashes. The left lower leg and foot are very tender to palpation. Distal neurovascularly intact. She prefers to hold the left leg in flexion and internal rotation. DTRs are 2+ at the patella 1+ at the ankle. Offered IM fentanyl which the patient agreed to, a lidocaine patch and oral prednisone. Patient plans to fill her prescription written by her orthopedic surgeon at a local pharmacy. Recommend follow up with neurology and primary care. (JOYCE LIU MD) Departure Impression Primary Impression: Neuropathic pain of left lower extremity Disposition: 01 HOME, SELF-CARE Condition: Stable Departure-Patient Inst. Decision time for Depature: 10:11 (JOYCE LIU MD) Referrals: [facility] [place],LOCAL PHYSICIAN (PCP) Primary Care Physician Patient Instructions: Neuropathic Pain Add. Discharge Instructions: Over the counter LIDOCAINE PATCHES to the left hip/buttock area. Follow packaging directions. You can also use VOLTAREN GEL over the area of pain in between using lidocaine patches. Steroids as directed by your Orthopedic Surgeon. Always take steroids with food. Use an over the counter acid men's swim coach such as Prilosec or Pepcid daily while on steroids. You need to follow up with Primary Care and possibly a Neurologist. Return to the ER for any new, concerning or emergent complaints - especially loss of bowel or bladder function, loss of function to the left leg. Verification and Attestation of Medical Student E/M Service A medical student performed and documented this service in my presence. I reviewed and verified all information documented by the medical student and made modifications to such information, when appropriate. I personally performed the physical exam and medical decision making. Joyce Liu, Aug 29, 2021,10:14 (JOYCE LIU MD) ROXANNE ALEJO MED STUDENT Aug 29, 2021 09:52 JOYCE LIU MD Aug 29, 2021 10:10
[2021-08-29] MEDS ORDERED: fentaNYL INJ 100 MCG/2 ML AMP IM ONE (10:00)
[2021-08-29] MEDS ORDERED: predniSONE 20 MG TAB PO ONE (10:00)
[2021-08-29 10:47] VITALS: BP 106/72
[2021-08-30] MEDS ORDERED: LIDOCAINE 4% (SALONPAS) PATCH TOP SCH (09:00)
== END 2021-08-29 10:47 | disposition home or self-care (01) ==
LOC: EDUNIT# 08:57 → ER 08:58
DX: G57.92 Unspecified mononeuropathy of left lower limb (principal); Z87.891 Personal history of nicotine dependence
CPT/HCPCS: 99284

== ENCOUNTER 2021-09-04 10:13 | Emergency (ER) | payer MEDICAID ==
[2021-09-04] MEDS ORDERED: morphine INJ 10 MG/ML 1ML (SYR OR VIAL) IVP STA (10:41)
--- NOTE | 2021-09-04 11:17 | ED General ---
General Chief Complaint: Hip/Pelvic Problems Stated Complaint: GROIN PAIN - UNABLE TO WALK Nursing Triage Note: PT TO RM 6 BY WHEELCHAIR WITH COMPLAINT OF RIGHT HIP PAIN. STATES HAD LEFT HIP PLACEMENT IN JUNE AND HAD ISSUES WITH SCIATIC NERVE. PT IS COMPLAINING OF WORSENING RIGHT HIP PAIN AFTER PUTTING ALL HER WEIGHT ON IT. PT AMBULATORY TO REGISTRATION/WAITING ROOM FROM PARKING LOT. Source of Information: Patient, Old Records Exam Limitations: No Limitations History of Present Illness Date Seen by Provider: Sep 04, 2021 Time Seen by Provider: 10:17 Initial Comments This 66-year-old woman presents to the emergency room with complaints of severe bilateral hip pain. She has been seen in this ER previously including visits on July 29 and August 29 for related problems. She had a hip replacement in June by Dr. Hernandez at [facility] in [place]. Since then she has had neuropathic pain on the left as well as weakness of the left lower extremity. This has significantly affected her gait, and she uses a walker. She has been intolerant of neuropathic pain medication such as gabapentin and Lyrica as well as opiates including anything that ends with "-odone". She reports these medications also were not particularly effective. She states she now has severe pain in the right hip because of her altered gait. She is unable to walk today. On her July [address] of the lumbar spine was obtained and demonstrated spinal stenosis and neuroforaminal stenosis. She has not had any recent MRI studies here to evaluate her changing symptoms. She does not know what imaging studies were obtained at [facility]. Of concern today she has a noticeable weakness of the left lower extremity compared to the right and she complains of new urinary dribbling. She does not describe any urinary retention. Her primary care provider is Dr. Roy, but she states she intends to establish with a new provider tomorrow. She is tearful and in distress. Prior records were reviewed and contributed to this HPI. Allergies and Home Medications Allergies Coded Allergies: doxycycline (Unverified Allergy, Unknown, RASH, 12/20/20) Patient Home Medication List Home Medication List Reviewed: Yes Alprazolam (Xanax) 0.5 Mg Tablet, 0.5-1 MG PO BID PRN for ANXIETY, (Reported) Entered as Reported by: CHRISTIANO GALLEGOS on 03/03/13 0932 Amitriptyline HCl (Amitriptyline HCl) 25 Mg Tablet, 25 MG PO HS PRN for PAIN- MODERATE (5-7) Prescribed by: MIGNON CLEVELAND on 09/04/21 1316 Esomeprazole Mag Trihydrate (Nexium) 40 Mg Capsule.dr, 40 MG PO DAILY, (Reported) Entered as Reported by: CHRISTIANO GALLEGOS on 03/03/13 0911 Fenofibrate Nanocrystallized (Fenofibrate) 145 Mg Tablet, 145 MCG PO DAILY, (Reported) Entered as Reported by: JOANA HERNANDEZ on 12/20/20 1043 Fidaxomicin (Dificid) 200 Mg Tablet, 200 MG PO BID Prescribed by: LIZA REYNA on 05/31/21 1623 Hydroxyzine HCl (Hydroxyzine HCl) 25 Mg Tablet, 25 MG PO BID, (Reported) Entered as Reported by: DANY HENRIQUEZ on 05/08/16 0957 Hyoscyamine Sulfate (Levsin-Sl) 0.125 Mg Tab.subl, 0.125 MG SL Q4H PRN for CRAMPS Prescribed by: LIZA REYNA on 05/31/21 1623 Iron,Carbonyl (Iron Chews) 15 Mg Tab.chew, 45 MG PO DAILY, (Reported) Entered as Reported by: JOANA HERNANDEZ on 12/20/20 1043 Methylprednisolone (Methylprednisolone Dose Pack) 4 Mg Tab.ds.pk, 4 MG PO UD Prescribed by: VICENTE ECHEVARRIA on 07/29/21 1610 Ondansetron (Ondansetron Odt) 4 Mg Tab.rapdis, 4 MG PO Q6H PRN for NAUSEA/VOMITING Prescribed by: VICENTE ECHEVARRIA on 07/29/21 1610 Oxycodone HCl (Oxycontin) 10 Mg Tab.er.12h, 10 MG PO BID Prescribed by: MIGNON CLEVELAND on 09/04/21 1317 Oxycodone HCl/Acetaminophen (Percocet 7.5-325 mg Tablet) 1 Each Tablet, 1 TAB PO Q4H PRN for PAIN-MODERATE Prescribed by: YESSY HORN on 12/21/20 1405 Pantoprazole Sodium (Protonix) 40 Mg Tablet.dr, 40 MG PO DAILY, (Reported) Entered as Reported by: JOANA HERNANDEZ on 12/20/20 1043 Quetiapine Fumarate (Seroquel) 300 Mg Tablet, 300 MG PO HS, (Reported) Entered as Reported by: JOANA HERNANDEZ on 12/20/20 1043 Vilazodone Hydrochloride (Viibryd) 40 Mg Tablet, (Reported) Entered as Reported by: DANY HENRIQUEZ on 05/08/16 0957 Review of Systems Review of Systems Constitutional: no symptoms reported EENTM: no symptoms reported Respiratory: no symptoms reported Cardiovascular: no symptoms reported Gastrointestinal: no symptoms reported Genitourinary: incontinence Musculoskeletal: see HPI Skin: no symptoms reported Psychiatric/Neurological: See HPI Hematologic/Lymphatic: No Symptoms Reported Immunological/Allergic: no symptoms reported Past Hphdwid-Mjcugo-Clmtrw Hx Patient Social History Tobacco Use?: No Use of E-Cig and/or Vaping dev: No Substance use?: No Alcohol Use?: No Pt feels they are or have been: No Immunizations Up To Date Tetanus Booster (TDap): Unknown Seasonal Allergies Seasonal Allergies: Yes Past Medical History Surgeries: Yes (left hernia repair. right breast biopsy, L HIP LAPAROSCOPY) Hysterectomy, Joint Replacement (Left hip) Respiratory: No Currently Using CPAP: No Currently Using BIPAP: No Cardiac: Yes High Cholesterol Neurological: Yes (Lumbar spinal stenosis and left lower extremity sciatica) Reproductive Disorders: No Female Reproductive Disorders: Denies PUBLIC AFFAIRS OFFICER History: Hysterectomy Genitourinary: No Gastrointestinal: Yes Gastroesophageal Reflux, Chronic Diarrhea, Hiatal Hernia Musculoskeletal: Yes (DJD LEFT KNEE and bilateral hips, lumbar spinal stenosis) Chronic Back Pain Endocrine: No HEENT: No Cancer: No Psychosocial: Yes (PANIC DISORDER) Anxiety, PTSD Integumentary: No Blood Disorders: No Family Medical History No Pertinent Family Hx Physical Exam Vital Signs Vital Signs - First Documented 09/04/21 10:23 Temp 35.7 Pulse 81 Resp 16 B/P (MAP) 150/104 (119) Pulse Ox 97 O2 Delivery Room Air Capillary Refill : Less Than 3 Seconds Height, Weight, BMI Height: 5'4.00" Weight: 130lbs. 0oz. [id number]; 19.00 BMI Method:Stated General Appearance: WD/WN, Moderate Distress, Thin, Other (Tearful, crying) HEENT: PERRL/EOMI, Normal ENT Inspection Neck: Normal Inspection Respiratory: Lungs Clear, Normal Breath Sounds, No Accessory Muscle Use Cardiovascular: Regular Rate, Rhythm, No Edema, No Murmur Gastrointestinal: Normal Bowel Sounds, Soft, Tenderness (In the pelvis around the hip joint) Extremity: Normal Inspection, No Pedal Edema, Other (Tenderness over the bilateral hips) Neurologic/Psychiatric: Alert, Oriented x3, Normal Mood/Affect, slunk skin curer II-XII Norm as Tested, Other (Moves all 4 extremities but has weakness of dorsiflexion and plantarflexion of the left foot. Sensation intact.) Progress/Results/Core Measures Suspected Sepsis SIRS Temperature: Pulse: 81 Respiratory Rate: 16 Blood Pressure 150 /104 Mean: 119 Results/Orders My Orders Orders - MIGNON DE GUZMAN MD Ed Iv/Invasive Line Start (09/04/21 10:41) Morphine Injection (Morphine Injection (09/04/21 10:41) Mri Pelvis W/O Contrast (09/04/21 10:41) Mri Lumbar Spine W/O Contrast (09/04/21 10:41) Vital Signs/I&O 09/04/21 09/04/21 10:23 13:32 Temp 35.7 Pulse 81 65 Resp 16 16 B/P (MAP) 150/104 (119) 108/71 Pulse Ox 97 97 O2 Delivery Room Air Room Air Capillary Refill : Less Than 3 Seconds Blood Pressure Mean: 119 Progress Note #1: Time: 11:19 Progress Note Patient received morphine for pain control. MRI of the lumbar spine and pelvis were ordered. The studies were discussed with Dr. Thomson before being ordered. Progress Note #2: Time: 19:19 Progress Note Patient had good pain control with the IV morphine. MRI studies of the lumbar spine and pelvis were obtained and reports reviewed. There were no immediate surgical emergencies identified. Patient was ultimately discharged home in good condition. Since morphine worked well for her in the ER, she was prescribed a short course of OxyContin to start while awaiting a pain management plan from her new primary care provider. Patient did later call after discharge from the hospital stating that she took her OxyContin at 1500 and still had not had good pain relief by 1900. She was advised to take her next dose at 2200 along with the amitriptyline provided. Hopefully this will give her some relief through the night until she can see her new primary care provider tomorrow. See discharge instructions for further discussion. Diagnostic Imaging Diagonstic Imaging: MRI Plain Films/CT/US/NM/MRI: other (Lumbar spine) Comments NAME: [facility]GUI [facility] REC#: [id number] PT STATUS: DEP ER : 1955 PHYSICIAN: MIGNON DE GUZMAN MD ADMIT DATE: 09/04/21/ER Signed Date of Exam:09/04/21 MRI LUMBAR SPINE W/O CONTRAST PROCEDURE: MRI lumbar spine. TECHNIQUE: Multiplanar, multisequence MRI of the lumbar spine was performed without contrast. INDICATION: Back pain. Bilateral hip pain as well with weightbearing. EXAMINATION:: Lumbar spine MRI without contrast 08/07/2021. FINDINGS: There is normal height and alignment of the vertebral bodies. There is marked artifact in the lower thoracic region extending to the L1 level limiting evaluation in these regions. This limits violation of the distal cord which is grossly unremarkable as visualized. An abnormality at these levels cannot be excluded. L1-L2: There is bilateral facet and ligamentum flavum hypertrophy. No central stenosis is appreciated. There is poor visualization of the neural foramina due to artifact with no significant stenosis appreciated. L2-L3: There is bilateral facet and ligamentum flavum hypertrophy. There is no central stenosis. There is mild bilateral neural foraminal narrowing. L3-L4: There is disc desiccation with a broad-based left paracentral bulging disc. There is a left paracentral annular tear. There is bilateral facet and ligamentum flavum hypertrophy. Moderate central stenosis is noted. There is moderate bilateral neural foraminal narrowing. L4-L5: There is intervertebral space narrowing, disc desiccation with a broad-based bulging disc. There is bilateral facet and ligamentum flavum hypertrophy. There is secondary moderate central stenosis. There is moderate bilateral neural foraminal narrowing right worse than left. L5-S1: There is intervertebral space narrowing and disc desiccation with a broad-based bulging disc. There is bilateral facet and ligamentum flavum hypertrophy. There is mild central stenosis with narrowing of the left lateral recess. There is a moderate to severe bilateral neural foraminal stenosis. There is nonspecific T2 hyperintensity throughout the S1 and S2 levels. A fracture line is not seen but an insufficiency fracture not excluded. Some of this may be even secondary to artifact. Correlate for any tenderness to the sacral region. 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 The visualized intra-abdominal structures demonstrate cystic changes in the kidneys too small for characterization. IMPRESSION: 1. Multilevel degenerative disease as above with limitations in the upper lumbar spine and lower thoracic region due to artifact. 2. Minimal edema within the S1-S2 levels which could represent artifact and incomplete fat saturation with a underlying sacral insufficiency fracture less likely but not excluded. Correlate with patient's symptoms. Dictated by: Dictated on workstation # [id number] Dict: 09/04/21 1201 Trans: 09/04/21 1506 CV [id number] Interpreted by: CHRISTIANO IQBAL MD Electronically signed by: CHRISTIANO IQBAL MD 09/04/21 1506 Diagonstic Imaging: MRI Plain Films/CT/US/NM/MRI: pelvis Comments NAME: TRUE [facility]UREGUI [facility] REC#: [id number] PT STATUS: DEP ER : 1955 PHYSICIAN: MIGNON DE GUZMAN MD ADMIT DATE: 09/04/21/ER Signed Date of Exam:09/04/21 MRI PELVIS W/O CONTRAST PROCEDURE: MRI pelvis without contrast. TECHNIQUE: Multiplanar, multisequence MRI of the pelvis was performed without contrast. INDICATION: New right hip pain, left hip is replaced. FINDINGS: There is no evidence for right hip fracture. There is some degenerative disease narrowing the right hip joint and a small right hip joint effusion. Some mild presumed degenerative marrow edema along the anterior aspect of the acetabulum and articular femoral head. There may be a tiny developing subcortical degenerative cyst. There is no loose body. No articular collapse or bony fragmentation. The femoral neck, trochanters, and visualized subtrochanteric shaft are intact. There is no marrow edema or fracture to the bilateral superior or inferior pubic rami. No symphyseal or SI joint diastasis. Sacrococcygeal levels revealed no marrow edema. There is degenerative disease to the visualized lower lumbar spine. Pelvic sidewalls are unremarkable. No hemorrhage, free fluid, abscess, adenopathy, or demonstrated hernia. The lower abdominal wall is intact. IMPRESSION: 1. There are arthritic changes to the right hip with a small joint effusion and some mild degenerative marrow edema anteriorly, but no evidence for fracture, necrosis, or septic joint. Left hip is degraded by artifact from arthroplasty. The unobscured bony pelvis appeared normal. 2. No acute appearing abnormality identified. Dictated by: Dictated on workstation # [id number] Dict: 09/04/21 1223 Trans: 09/04/211705 [id number] Interpreted by: BUFFY GIL Electronically signed by: BUFFY GIL 09/04/211705 Departure Impression Primary Impression: Right hip pain Additional Impressions: Urinary incontinence Qualified Codes: R32 - Unspecified urinary incontinence Left leg weakness Lumbar spinal stenosis Qualified Codes: M48.061 - Spinal stenosis, lumbar region without neurogenic claudication Degenerative joint disease of right hip Qualified Codes: M16.11 - Unilateral primary osteoarthritis, right hip Disposition: 01 HOME, SELF-CARE Condition: Improved Departure-Patient Inst. Decision time for Depature: 13:13 Referrals: NO,LOCAL PHYSICIAN (PCP/Family) Primary Care Physician Patient Instructions: Spinal Stenosis Add. Discharge Instructions: You may use OxyContin as prescribed for maintenance control of your pain. While taking this medication be very careful as it may cause significant drowsiness. Do not drive or operate machinery while taking this medication. Try it this afternoon and let your new primary care provider know how it works for you at your appointment tomorrow. You may wish to use a stool softener such as Colace while on OxyContin to prevent constipation. You may also try amitriptyline at bedtime to help with nerve pain while you sleep. You have some significant degenerative disease and arthritis in your right hip and your lower back as well as narrowing of the spinal space and nerve roots. This could be contributing to your hip and leg pain. Discussed referral to a spine surgeon or neurosurgeon with your provider at your appointment tomorrow. Call with questions or concerns. Return to the ER if you have worsening symptoms despite following these instructions including escalating pain, worsening weakness in your legs, decreased control of bowel or bladder, groin or genital numbness, etc. All discharge instructions reviewed with patient and/or family. Voiced understanding. Scripts Amitriptyline HCl (Amitriptyline HCl) 25 Mg Tablet 25 MG PO HS PRN for PAIN-MODERATE (5-7), #10 TAB Prov: MIGNON DE GUZMAN MD 09/04/21 Oxycodone HCl (Oxycontin) 10 Mg Tab.er.12h 10 MG PO BID, #10 TAB Prov: MIGNON DE GUZMAN MD 09/04/21 Copy Copies To 1: ROSITA STRATTON JOSHUA T MD Sep 04, 2021 11:17
--- NOTE | 2021-09-04 12:11 | Diagnostic Imaging Report ---
PROCEDURE: MRI lumbar spine. TECHNIQUE: Multiplanar, multisequence MRI of the lumbar spine was performed without contrast. INDICATION: Back pain. Bilateral hip pain as well with weightbearing. EXAMINATION:: Lumbar spine MRI without contrast 08/07/2021. FINDINGS: There is normal height and alignment of the vertebral bodies. There is marked artifact in the lower thoracic region extending to the L1 level limiting evaluation in these regions. This limits violation of the distal cord which is grossly unremarkable as visualized. An abnormality at these levels cannot be excluded. L1-L2: There is bilateral facet and ligamentum flavum hypertrophy. No central stenosis is appreciated. There is poor visualization of the neural foramina due to artifact with no significant stenosis appreciated. L2-L3: There is bilateral facet and ligamentum flavum hypertrophy. There is no central stenosis. There is mild bilateral neural foraminal narrowing. L3-L4: There is disc desiccation with a broad-based left paracentral bulging disc. There is a left paracentral annular tear. There is bilateral facet and ligamentum flavum hypertrophy. Moderate central stenosis is noted. There is moderate bilateral neural foraminal narrowing. L4-L5: There is intervertebral space narrowing, disc desiccation with a broad-based bulging disc. There is bilateral facet and ligamentum flavum hypertrophy. There is secondary moderate central stenosis. There is moderate bilateral neural foraminal narrowing right worse than left. L5-S1: There is intervertebral space narrowing and disc desiccation with a broad-based bulging disc. There is bilateral facet and ligamentum flavum hypertrophy. There is mild central stenosis with narrowing of the left lateral recess. There is a moderate to severe bilateral neural foraminal stenosis. There is nonspecific T2 hyperintensity throughout the S1 and S2 levels. A fracture line is not seen but an insufficiency fracture not excluded. Some of this may be even secondary to artifact. Correlate for any tenderness to the sacral region. 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 The visualized intra-abdominal structures demonstrate cystic changes in the kidneys too small for characterization. IMPRESSION: 1. Multilevel degenerative disease as above with limitations in the upper lumbar spine and lower thoracic region due to artifact. 2. Minimal edema within the S1-S2 levels which could represent artifact and incomplete fat saturation with a underlying sacral insufficiency fracture less likely but not excluded. Correlate with patient's symptoms. Dictated by: Dictated on workstation # [id number]
--- NOTE | 2021-09-04 12:38 | Diagnostic Imaging Report ---
PROCEDURE: MRI pelvis without contrast. TECHNIQUE: Multiplanar, multisequence MRI of the pelvis was performed without contrast. INDICATION: New right hip pain, left hip is replaced. FINDINGS: There is no evidence for right hip fracture. There is some degenerative disease narrowing the right hip joint and a small right hip joint effusion. Some mild presumed degenerative marrow edema along the anterior aspect of the acetabulum and articular femoral head. There may be a tiny developing subcortical degenerative cyst. There is no loose body. No articular collapse or bony fragmentation. The femoral neck, trochanters, and visualized subtrochanteric shaft are intact. There is no marrow edema or fracture to the bilateral superior or inferior pubic rami. No symphyseal or SI joint diastasis. Sacrococcygeal levels revealed no marrow edema. There is degenerative disease to the visualized lower lumbar spine. Pelvic sidewalls are unremarkable. No hemorrhage, free fluid, abscess, adenopathy, or demonstrated hernia. The lower abdominal wall is intact. IMPRESSION: 1. There are arthritic changes to the right hip with a small joint effusion and some mild degenerative marrow edema anteriorly, but no evidence for fracture, necrosis, or septic joint. Left hip is degraded by artifact from arthroplasty. The unobscured bony pelvis appeared normal. 2. No acute appearing abnormality identified. Dictated by: Dictated on workstation # [id number]
[2021-09-04] MEDS ORDERED: AMIT25TA9 PO (13:16)
[2021-09-04] MEDS ORDERED: OXYC10TA55 PO (13:16)
[2021-09-04 13:32] VITALS: BP 108/71
== END 2021-09-04 13:32 | disposition home or self-care (01) ==
LOC: EDUNIT# 10:13 → ER 10:16
DX: R32 Unspecified urinary incontinence (principal); R53.1 Weakness; M48.061 Spinal stenosis, lumbar region without neurogenic claudication; M16.11 Unilateral primary osteoarthritis, right hip
CPT/HCPCS: 72148; 72195

== ENCOUNTER 2021-11-15 09:23 | Outpatient (RCR) | payer MEDICAID ==
[~2021-11-15 09:23] MED LIST changes: +AMIT25TA9 PO; +OXYC10TA55 PO
== END 2021-11-20 | disposition home or self-care (01) ==
PROVIDERS: ATTEND Orthopaedic Surgery
DX: Z47.1 Aftercare following joint replacement surgery (principal); Z96.642 Presence of left artificial hip joint

== ENCOUNTER 2021-12-06 08:58 | Outpatient (RCR) | payer MEDICAID | END 2021-12-11 09:19 | disposition home or self-care (01) | PROVIDERS: ATTEND Orthopaedic Surgery | DX: M25.552 Pain in left hip (principal); Z96.642 Presence of left artificial hip joint ==

== ENCOUNTER 2022-08-12 12:54 | Emergency (ER) | payer MEDICARE, MEDICAID ==
[~2022-08-12] VITALS: Ht 165 cm; Wt 60.3 kg
[2022-08-12] MEDS ORDERED: NS IV 500 ML 500 ML IV ONE (13:15)
[2022-08-12] MEDS ORDERED: MECLIZINE 25 MG (ANTIVERT) TAB PO ONE (13:15)
[2022-08-12] MEDS ORDERED: ONDANSETRON 4 MG/2 ML (SDV) Z0FRAN IVP ONE (13:15)
[2022-08-12 13:16] LABS: BASOPHILS # (AUTO) 0.1 10^3/uL (0.0-0.1); BASOPHILS % (AUTO) 1 % (0-10); EOSINOPHILS # (AUTO) 0.2 10^3/uL (0.0-0.3); EOSINOPHILS % (AUTO) 3 % (0-10); HEMATOCRIT 35 % (35-52); HEMOGLOBIN 11.5 g/dL (11.5-16.0); LYMPHOCYTES # (AUTO) 2.3 10^3/uL (1.0-4.0); LYMPHOCYTES % (AUTO) 36 % (12-44); MEAN CORPUSCULAR HEMOGLOBIN 30 pg (25-34); MEAN CORPUSCULAR HGB CONC 33 g/dL (32-36); MEAN CORPUSCULAR VOLUME 91 fL (80-99); MONOCYTES # (AUTO) 0.5 10^3/uL (0.0-1.0); MONOCYTES % (AUTO) 8 % (0-12); NEUTROPHILS # (AUTO) 3.3 10^3/uL (1.8-7.8); NEUTROPHILS % (AUTO) 52 % (42-75); PLATELET COUNT 320 10^3/uL (130-400); WHITE BLOOD COUNT 6.5 10^3/uL (4.3-11.0)
--- NOTE | 2022-08-12 13:18 | ED General ---
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 History of Present Illness Date Seen by Provider: Aug 12, 2022 Time Seen by Provider: 13:05 Initial Comments 67-year-old female presents with complaints of dizziness, vision changes, headache, some nausea but no vomiting. She reports that started about 1 hour before arrival. She does not know of anything makes it worse or better. She reports that she was just driving when it happened. Denies any recent illnesses, fever, chills. She does have a cough. Allergies and Home Medications Allergies Coded Allergies: doxycycline (Unverified Allergy, Unknown, RASH, 12/20/20) Patient Home Medication List Home Medication List Reviewed: Yes Alprazolam (Xanax) 0.5 Mg Tablet, 0.5-1 MG PO BID PRN for ANXIETY, (Reported) Entered as Reported by: CHRISTIANO GALLEGOS on 03/03/13 0911 Amitriptyline HCl (Amitriptyline HCl) 25 Mg Tablet, 25 MG PO HS PRN for PAIN- MODERATE (5-7) Prescribed by: MIGNON CLEVELAND on 09/04/21 1316 Esomeprazole Mag Trihydrate (Nexium) 40 Mg Capsule.dr, 40 MG PO DAILY, (Reported) Entered as Reported by: CHRISTIANO GALLEGOS on 03/03/13 0911 Fenofibrate Nanocrystallized (Fenofibrate) 145 Mg Tablet, 145 MCG PO DAILY, (Reported) Entered as Reported by: JOANA HERNANDEZ on 12/20/20 1043 Fidaxomicin (Dificid) 200 Mg Tablet, 200 MG PO BID Prescribed by: LIZA REYNA on 05/31/21 1623 Hydroxyzine HCl (Hydroxyzine HCl) 25 Mg Tablet, 25 MG PO BID, (Reported) Entered as Reported by: DANY HENRIQUEZ on 05/08/16 0957 Hyoscyamine Sulfate (Levsin-Sl) 0.125 Mg Tab.subl, 0.125 MG SL Q4H PRN for CRAMPS Prescribed by: LIZA REYNA on 05/31/21 1623 Iron,Carbonyl (Iron Chews) 15 Mg Tab.chew, 45 MG PO DAILY, (Reported) Entered as Reported by: JOANA HERNANDEZ on 12/20/20 1043 Methylprednisolone (Methylprednisolone Dose Pack) 4 Mg Tab.ds.pk, 4 MG PO UD Prescribed by: VICENTE ECHEVARRIA on 07/29/21 1610 Ondansetron (Ondansetron Odt) 4 Mg Tab.rapdis, 4 MG PO Q6H PRN for NAUSEA/VOMITING Prescribed by: VICENTE ECHEVARRIA on 07/29/21 1610 Oxycodone HCl (Oxycontin) 10 Mg Tab.er.12h, 10 MG PO BID Prescribed by: MIGNON CLEVELAND on 09/04/21 1317 Oxycodone HCl/Acetaminophen (Percocet 7.5-325 mg Tablet) 1 Each Tablet, 1 TAB PO Q4H PRN for PAIN-MODERATE Prescribed by: YESSY HORN on 12/21/20 1405 Pantoprazole Sodium (Protonix) 40 Mg Tablet.dr, 40 MG PO DAILY, (Reported) Entered as Reported by: JOANA HERNANDEZ on 12/20/20 1043 Quetiapine Fumarate (Seroquel) 300 Mg Tablet, 300 MG PO HS, (Reported) Entered as Reported by: JOANA HERNANDEZ on 12/20/20 1043 Vilazodone Hydrochloride (Viibryd) 40 Mg Tablet, (Reported) Entered as Reported by: DANY HENRIQUEZ on 05/08/16 0957 Review of Systems Review of Systems Constitutional: No chills; dizziness; No fever; malaise EENTM: no symptoms reported Respiratory: cough; No short of breath Cardiovascular: no symptoms reported Gastrointestinal: nausea; No vomiting Genitourinary: no symptoms reported Musculoskeletal: see HPI Skin: see HPI Psychiatric/Neurological: Headache Hematologic/Lymphatic: No Symptoms Reported Immunological/Allergic: no symptoms reported Past Iriiolk-Oggolq-Fsqxxk Hx Patient Social History Tobacco Use?: Yes Tobacco type used: Cigarettes Smoking Status: Current Everyday Smoker Substance use?: No Alcohol Use?: No Pt feels they are or have been: No Immunizations Up To Date Tetanus Booster (TDap): Unknown Seasonal Allergies Seasonal Allergies: Yes Past Medical History Surgery/Hospitalization HX: pmh: high chol, l hip replacement Surgeries: Yes (left hernia repair. 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 0oz. 58.007540eu; 22.00 BMI Method:Stated General Appearance: No Apparent Distress Eyes: Bilateral Eye Normal Inspection, Bilateral Eye PERRL HEENT: PERRL/EOMI, TMs Normal, Other (Moderate cerumen left ear) Neck: Non Tender, Supple Respiratory: Lungs Clear, Normal Breath Sounds Cardiovascular: Regular Rate, Rhythm, No Edema Gastrointestinal: Non Tender, Soft Extremity: Normal Capillary Refill, Normal Inspection, Normal Range of Motion Neurologic/Psychiatric: Alert, Oriented x3, No Motor/Sensory Deficits, Normal Mood/Affect, ambulance dispatcher II-XII Norm as Tested Skin: Normal Color, Warm/Dry Progress/Results/Core Measures Suspected Sepsis SIRS Temperature: Pulse: 71 Respiratory Rate: 18 Laboratory Tests 08/12/22 13:05: White Blood Count 6.5 Blood Pressure 131 /75 Mean: 93 Laboratory Tests 08/12/22 13:05: Creatinine 0.85, Platelet Count 320, Total Bilirubin 0.3 Results/Orders Lab Results Laboratory Tests Test 08/12/22 13:05 Range/Units White Blood Count 6.5 4.3-11.0 10^3/uL Red Blood Count 3.87 3.80-5.11 10^6/uL Hemoglobin 11.5 11.5-16.0 g/dL Hematocrit 35 35-52 % Mean Corpuscular Volume 91 80-99 fL Mean Corpuscular Hemoglobin 30 25-34 pg Mean Corpuscular Hemoglobin Concent 33 32-36 g/dL Red Cell Distribution Width 13.6 10.0-14.5 % Platelet Count 320 130-400 10^3/uL Mean Platelet Volume 11.0 9.0-12.2 fL Immature Granulocyte % (Auto) 1 % Neutrophils (%) (Auto) 52 42-75 % Lymphocytes (%) (Auto) 36 12-44 % Monocytes (%) (Auto) 8 0-12 % Eosinophils (%) (Auto) 3 0-10 % Basophils (%) (Auto) 1 0-10 % Neutrophils # (Auto) 3.3 1.8-7.8 10^3/uL Lymphocytes # (Auto) 2.3 1.0-4.0 10^3/uL Monocytes # (Auto) 0.5 0.0-1.0 10^3/uL Eosinophils # (Auto) 0.2 0.0-0.3 10^3/uL Basophils # (Auto) 0.1 0.0-0.1 10^3/uL Immature Granulocyte # (Auto) 0.0 0.0-0.1 10^3/uL Sodium Level 136 135-145 MMOL/L Potassium Level 3.7 3.6-5.0 MMOL/L Chloride Level 101 98-107 MMOL/L Carbon Dioxide Level 26 21-32 MMOL/L Anion Gap 9 5-14 MMOL/L Blood Urea Nitrogen 18 7-18 MG/DL Creatinine 0.85 0.60-1.30 MG/DL Estimat Glomerular Filtration Rate 76 BUN/Creatinine Ratio 21 Glucose Level 138 H 70-105 MG/DL Glucometer 135 H 70-110 MG/DL Calcium Level 9.1 8.5-10.1 MG/DL Corrected Calcium 8.9 8.5-10.1 MG/DL Magnesium Level 1.9 1.6-2.4 MG/DL Total Bilirubin 0.3 0.1-1.0 MG/DL Aspartate Amino Transf (AST/SGOT) 23 5-34 U/L Alanine Aminotransferase (ALT/SGPT) 12 0-55 U/L Alkaline Phosphatase 47 40-136 U/L Troponin I < 0.028 <0.028 NG/ML C-Reactive Protein High Sensitivity 0.30 0.00-0.50 MG/DL Total Protein 7.7 6.4-8.2 GM/DL Albumin 4.3 3.2-4.5 GM/DL My Orders Orders - TORRES,DIANA L DO Chest 1 View, Ap/Pa Only (08/12/22 13:08) Ct Head Wo-R/O Stroke (08/12/22 13:08) Cbc With Automated Diff (08/12/22 13:08) Comprehensive Metabolic Panel (08/12/22 13:08) Hs C Reactive Protein (08/12/22 13:08) Magnesium (08/12/22 13:08) Troponin I Letcher (08/12/22 13:08) Ua Culture If Indicated (08/12/22 13:08) Influenza A And B By Pcr (08/12/22 13:08) Covid 19 Inhouse Test (08/12/22 13:08) Ekg Tracing (08/12/22 13:08) Monitor-Rhythm Ecg Trace Only (08/12/22 13:08) Ondansetron Injection (Zofran Injectio (08/12/22 13:15) Meclizine Tablet (Antivert Tablet) (08/12/22 13:15) Ed Iv/Invasive Line Start (08/12/22 13:08) Ns Iv 500 Ml (Sodium Chloride 0.9%) (08/12/22 13:15) Medications Given in ED Current Medications Medications Dose Ordered Sig/Justin Route Start Time Stop Time Status Last Admin Dose Admin Meclizine HCl 25 mg ONCE ONCE PO 08/12/22 13:15 08/12/22 13:16 DC 08/12/22 13:20 25 MG Ondansetron HCl 4 mg ONCE ONCE IVP 08/12/22 13:15 08/12/22 13:16 DC 08/12/22 13:20 4 MG Sodium Chloride 500 ml @ 0 mls/hr Q0M ONCE IV 08/12/22 13:15 08/12/22 13:16 DC 08/12/22 13:19 0 MLS/HR Vital Signs/I&O 08/12/22 13:02 Temp 36.3 Pulse 71 Resp 18 B/P (MAP) 131/75 (93) Pulse Ox 100 Capillary Refill : Less Than 3 Seconds Blood Pressure Mean: 93 Progress Note : Progress Note Patient CT was reviewed and discussed with radiologist with no acute findings. Patient's chest x-ray was reviewed and shows no acute findings. Patient's labs were reviewed and showed no abnormalities. Patient's symptoms completely resolved with the meclizine and IV fluids. I suspect she just has some underlying vertigo. I discussed with patient that she may use [id number] meclizine to help with her symptoms if they return. I recommend she follow-up with her primary care provider to have her symptoms reevaluated. Patient stable and discharged home ECG Initial ECG Impression Date: Aug 12, 2022 Initial ECG Impression Time: 13:10 Initial ECG Rate: 68 Initial ECG Rhythm: Normal Sinus Initial ECG Impression: Nonspecific Changes Comment no st elevation or acute changes Diagnostic Imaging Diagonstic Imaging: CT Plain Films/CT/US/NM/MRI: head Comments Date of Exam:08/12/22 CT HEAD WO-R/O STROKE INDICATION: Neuro deficit, dizziness. TECHNIQUE: Routine non contrast-enhanced axial images were obtained from the skull base to the vertex. Auto Exposure Controls were utilized during the CT exam to meet ALARA standards for radiation dose reduction COMPARISON: None. FINDINGS: The ventricles and cortical sulci are age appropriate. There is no midline shift or mass-effect. No acute intra-axial hemorrhage is seen. There are no abnormal areas of increased or decreased density to suggest acute hemorrhage or edema. No extra-axial masses or collections are present. The bony calvarium is intact. The visualized paranasal sinuses are unremarkable. The mastoid air cells are clear. IMPRESSION: 1. No acute intracranial abnormality. No CT evidence of mass, acute infarct or intracranial hemorrhage. Reviewed: Reviewed by Me, Discussed w/Radiologist, Reviewed/Discussed Diagonstic Imaging: Xray Plain Films/CT/US/NM/MRI: chest Comments Date of Exam:08/12/22 CHEST 1 VIEW, AP/PA ONLY INDICATION: Dizziness, blurred vision. EXAMINATION: Portable chest at 1:42 PM. FINDINGS: The heart and mediastinum are normal. The lungs are clear. There are no effusions or pneumothoraces. IMPRESSION: Negative chest. Reviewed: Reviewed by Me, Reviewed/Discussed Departure Impression Primary Impression: Vertigo Disposition: 01 HOME, SELF-CARE Condition: Stable Departure-Patient Inst. Referrals: MAGALY LEWIS APRN (PCP) Primary Care Physician [facility] (Family) Primary Care Physician Patient Instructions: Vertigo ED Add. Discharge Instructions: You may use qnsr-pwo-[id number] meclizine as directed on package. Follow-up with your primary care provider in a couple days for recheck of your symptoms and further evaluation All discharge instructions reviewed with patient and/or family. Voiced understanding. DIANA TORRES DO Aug 12, 2022 13:18
[2022-08-12 13:21] LABS: ALBUMIN 4.3 GM/DL (3.2-4.5); CHLORIDE 101 MMOL/L (98-107); POTASSIUM 3.7 MMOL/L (3.6-5.0); SODIUM 136 MMOL/L (135-145)
[2022-08-12 13:22] LABS: CALCIUM 9.1 MG/DL (8.5-10.1)
[2022-08-12 13:23] LABS: GLUCOSE 138 MG/DL (70-105); TOTAL PROTEIN 7.7 GM/DL (6.4-8.2)
[2022-08-12 13:25] LABS: BILIRUBIN,TOTAL 0.3 MG/DL (0.1-1.0); CARBON DIOXIDE 26 MMOL/L (21-32)
[2022-08-12 13:27] LABS: ALKALINE PHOSPHATASE 47 U/L (40-136); CREATININE SERUM 0.85 MG/DL (0.60-1.30); GFR ESTIMATED 76
[2022-08-12 13:28] LABS: BUN/CREATININE RATIO 21
[2022-08-12 13:30] LABS: ALANINE AMINOTRANSFERASE 12 U/L (0-55); MAGNESIUM 1.9 MG/DL (1.6-2.4)
--- NOTE | 2022-08-12 13:40 | Diagnostic Imaging Report ---
INDICATION: Dizziness, blurred vision. EXAMINATION: Portable chest at 1:42 PM. FINDINGS: The heart and mediastinum are normal. The lungs are clear. There are no effusions or pneumothoraces. IMPRESSION: Negative chest. Dictated by: Dictated on workstation # [id number]
--- NOTE | 2022-08-12 13:41 | Diagnostic Imaging Report ---
INDICATION: Neuro deficit, dizziness. TECHNIQUE: Routine non contrast-enhanced axial images were obtained from the skull base to the vertex. Auto Exposure Controls were utilized during the CT exam to meet ALARA standards for radiation dose reduction COMPARISON: None. FINDINGS: The ventricles and cortical sulci are age appropriate. There is no midline shift or mass-effect. No acute intra-axial hemorrhage is seen. There are no abnormal areas of increased or decreased density to suggest acute hemorrhage or edema. No extra-axial masses or collections are present. The bony calvarium is intact. The visualized paranasal sinuses are unremarkable. The mastoid air cells are clear. IMPRESSION: 1. No acute intracranial abnormality. No CT evidence of mass, acute infarct or intracranial hemorrhage. Dictated by: Dictated on workstation # [id number]
[2022-08-12 14:17] VITALS: BP 100/65
== END 2022-08-12 14:17 | disposition home or self-care (01) ==
LOC: EDUNIT# 12:54 → ER 12:56
DX: R42 Dizziness and giddiness (principal); F17.210 Nicotine dependence, cigarettes, uncomplicated; Z28.310 Unvaccinated for COVID-19
CPT/HCPCS: 36415; 70450; 71045; 80053; 82947; 83735; 84484; 85025; 86141; 93005; 93041

== ENCOUNTER 2022-10-25 07:04 | Emergency (ER) | payer MEDICARE, MEDICAID ==
[~2022-10-25] VITALS: Ht 162.6 cm; Wt 59.0 kg
[2022-10-25] MEDS ORDERED: PRD10T PO (07:57)
[2022-10-25] MEDS ORDERED: HYDR-700 PO (07:57)
[2022-10-25] MEDS ORDERED: predniSONE 20 MG TAB PO ONE (08:00)
[2022-10-25] MEDS ORDERED: LIDOCAINE 2% VISCOUS 15 ML UDC MM ONE (08:00)
--- NOTE | 2022-10-25 08:02 | ED Integumentary General ---
General Chief Complaint: Skin/Wound Problems Stated Complaint: ABD RASH Nursing Triage Note: PT AMBULATE TO ROOM 06 WITHOUT DIFFICULTY WITH C/O RASH ON ABD X8 DAYS. PT REPORTS BEING SEEN BY PCP X4 DAYS AGO AND GIVEN A POWDER WITHOUT FELIEF. PT STATES THAT SHE WANTS TO SEE A REGULAR DOCTOR AND THAT SHE WANTS A SKIN SCRAPING TO SEE WHAT IS CAUSING THE RASH. PT INFORMED OF THE PROCESS IN THE EMERGENCY DEPARTMENT AND PATIENT STATES "I DON'T WANT TO HEAR A LECTURE". PT INFORMED THAT THE PROVIDER WOULD BE IN SHORTLY. Source: patient Exam Limitations: no limitations History of Present Illness Date Seen by Provider: October 25, 2022 Time Seen by Provider: 07:35 Initial Comments This 67-year-old woman presents to the emergency room with primary complaint of a severely pruritic rash around the waistline. Rash first presented about 8 days ago. She was seen in the clinic 4 days ago and was prescribed nystatin powder for suspected candidiasis and Zyrtec for itching. These medications have not been helpful. She has also tried triple antibiotic ointment, Vaseline, tea tree products, etc. without benefit. She seems to be agitated and in mild distress from the itching. She is lying in bed holding the waistline of her shorts and underwear off of her skin. She has been doing some work outside but does not recall any specific contacts in the timeframe that could have been responsible for this rash. Rash is noted to be on surfaces with greater external contact and spares the skin within skin folds. This would suggest a contact irritation rather than candidiasis. She is starting to have some lesser itching around the neck and proximal upper extremities. She denies diabetes. Allergies and Home Medications Allergies Coded Allergies: doxycycline (Unverified Allergy, Unknown, RASH, 12/20/20) Patient Home Medication List Home Medication List Reviewed: Yes Alprazolam (Xanax) 0.5 Mg Tablet, 0.5-1 MG PO BID PRN for ANXIETY, (Reported) Entered as Reported by: CHRISTIANO GALLEGOS on 03/03/13 0911 Amitriptyline HCl (Amitriptyline HCl) 25 Mg Tablet, 25 MG PO HS PRN for PAIN- MODERATE (5-7) Prescribed by: MIGNON CLEVELAND on 09/04/21 1316 Esomeprazole Mag Trihydrate (Nexium) 40 Mg Capsule.dr, 40 MG PO DAILY, (Reported) Entered as Reported by: CHRISTIANO GALLEGOS on 03/03/13 0911 Fenofibrate Nanocrystallized (Fenofibrate) 145 Mg Tablet, 145 MCG PO DAILY, (Reported) Entered as Reported by: JOANA HERNANDEZ on 12/20/20 1043 Fidaxomicin (Dificid) 200 Mg Tablet, 200 MG PO BID Prescribed by: LIZA REYNA on 05/31/21 1623 Hydroxyzine HCl (Hydroxyzine HCl) 25 Mg Tablet, 25 MG PO BID, (Reported) Entered as Reported by: DANY HENRIQUEZ on 05/08/16 0957 Hydroxyzine HCl (Hydroxyzine HCl) 25 Mg Tablet, 25 MG PO Q6H PRN for ITCHING Prescribed by: MIGNON CLEVELAND on 10/25/22 0757 Hyoscyamine Sulfate (Levsin-Sl) 0.125 Mg Tab.subl, 0.125 MG SL Q4H PRN for CRAMPS Prescribed by: LIZA REYNA on 05/31/21 1623 Iron,Carbonyl (Iron Chews) 15 Mg Tab.chew, 45 MG PO DAILY, (Reported) Entered as Reported by: JOANA HERNANDEZ on 12/20/20 1043 Methylprednisolone (Methylprednisolone Dose Pack) 4 Mg Tab.ds.pk, 4 MG PO UD Prescribed by: VICENTE ECHEVARRIA on 07/29/21 1610 Ondansetron (Ondansetron Odt) 4 Mg Tab.rapdis, 4 MG PO Q6H PRN for NAUSEA/VOMITING Prescribed by: VICENTE ECHEVARRIA on 07/29/21 1610 Oxycodone HCl (Oxycontin) 10 Mg Tab.er.12h, 10 MG PO BID Prescribed by: MIGNON CLEVELAND on 09/04/21 1317 Oxycodone HCl/Acetaminophen (Percocet 7.5-325 mg Tablet) 1 Each Tablet, 1 TAB PO Q4H PRN for PAIN-MODERATE Prescribed by: YESSY HORN on 12/21/20 1405 Pantoprazole Sodium (Protonix) 40 Mg Tablet.dr, 40 MG PO DAILY, (Reported) Entered as Reported by: JOANA HERNANDEZ on 12/20/20 1043 Prednisone (Prednisone) 10 Mg Tab, 1 TAB PO UD Prescribed by: MIGNON CLEVELAND on 10/25/22 0757 Quetiapine Fumarate (Seroquel) 300 Mg Tablet, 300 MG PO HS, (Reported) Entered as Reported by: JOANA HERNANDEZ on 12/20/20 1043 Vilazodone Hydrochloride (Viibryd) 40 Mg Tablet, (Reported) Entered as Reported by: DANY HENRIQUEZ on 05/08/16 0957 Review of Systems Review of Systems Constitutional: no symptoms reported EENTM: no symptoms reported Respiratory: no symptoms reported Cardiovascular: no symptoms reported Gastrointestinal: no symptoms reported Genitourinary: no symptoms reported Musculoskeletal: no symptoms reported Skin: see HPI Psychiatric/Neurological: See HPI Endocrine: No Symptoms Reported Hematologic/Lymphatic: No Symptoms Reported Past Jntugfy-Jrphxh-Oqtpno Hx Patient Social History Tobacco Use?: Yes Tobacco type used: Cigarettes Smoking Status: Heavy Tobacco Smoker Smokeless Tobacco Frequency: Never a User Use of E-Cig and/or Vaping dev: No Use of E-Cig and/or Vaping [place]: Never a User Substance use?: No Alcohol Use?: No Pt feels they are or have been: No Immunizations Up To Date Tetanus Booster (TDap): Unknown Seasonal Allergies Seasonal Allergies: Yes Past Medical History Surgery/Hospitalization HX: pmh: high chol, l hip replacement Surgeries: Yes (left hernia repair. 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 Genitourinary: No Gastrointestinal: Yes Gastroesophageal Reflux, Chronic Diarrhea, Hiatal Hernia Musculoskeletal: Yes (DJD LEFT KNEE and bilateral hips, lumbar spinal stenosis) Chronic Back Pain Endocrine: No HEENT: No Cancer: No Psychosocial: Yes (PANIC DISORDER) Anxiety, PTSD Integumentary: No Blood Disorders: No Family Medical History No Pertinent Family Hx Physical Exam Vital Signs Vital Signs - First Documented 10/25/22 07:22 Temp 36.4 Pulse 76 Resp 17 B/P (MAP) 128/77 (94) O2 Delivery Room Air Capillary Refill : Less Than 3 Seconds General Appearance: WD/WN, mild distress HEENT: normal ENT inspection Cardiovascular: regular rate, rhythm, no edema, no murmur Respiratory: lungs clear, normal breath sounds, no respiratory distress Neurologic/Psychiatric: no motor/sensory deficits, alert, oriented x 3, other (Mildly agitated) Skin: warm/dry, rash (Erythematous, mildly raised patchy rash around the waistline and sparing the skin on the inner portions of skin folds. Intensely pruritic.) Progress/Results/Core Measures Results/Orders My Orders Orders - MIGNON DE GUZMAN MD Prednisone Tablet (Deltasone Tablet) (10/25/22 08:00) Lidocaine 2% Viscous 15 Ml (Xylocaine Vi (10/25/22 08:00) Vital Signs/I&O 10/25/22 07:22 Temp 36.4 Pulse 76 Resp 17 B/P (MAP) 128/77 (94) O2 Delivery Room Air Blood Pressure Mean: 94 Progress Progress Note : Progress Note Topical lidocaine that was provided to the patient for immediate treatment and her first dose of prednisone was provided in the ER. A prednisone taper was prescribed. Hydroxyzine was prescribed but not given in the ER as patient intended to drive home. See discharge instructions for further discussion. Departure Impression Primary Impression: Contact dermatitis Qualified Codes: L25.9 - Unspecified contact dermatitis, unspecified cause Disposition: 01 HOME, SELF-CARE Condition: Stable Departure-Patient Inst. Decision time for Depature: 07:52 Referrals: MAGALY LEWIS APRN (PCP) Primary Care Physician [facility]/[place] (Family) Primary Care Physician Patient Instructions: Contact Dermatitis (DC) Add. Discharge Instructions: This rash is likely caused by a contact dermatitis. Do not use any antibiotic ointments on this rash as it may worsen with antibiotic ointment. The prednisone steroids should reduce the rash and itching over the next several days, but this will take some time to take effect. Please take prednisone early in the day to avoid sleep disturbance and with food or milk to avoid upset stomach. Take your first dose tomorrow as you have already taken a dose in the ER today. Use hydroxyzine as prescribed for more immediate relief of itching. Hydroxyzine may cause drowsiness so use with caution and avoid driving, operating machinery, or making important decisions while you are on hydroxyzine. You may use topical anti-itch products such as topical Benadryl (diphenhydramine). You may also use topical anesthetics (numbing agents) such as reay-cjt-blmmohs preparations containing benzocaine or lidocaine. This rash will take several days, if not a couple weeks, to resolve. Please be patient with the process. Return to care if you have worsening symptoms in the meantime. Because this rash was likely caused by contact with a topical irritant such as poison connie or some other substance you are sensitive to, please be on the look out for what may have caused the dermatitis and avoid that substance in the future. Wash any clothing worn over the last 2 weeks in cool water with detergent. All discharge instructions reviewed with patient and/or family. Voiced unders tanding. Scripts Hydroxyzine HCl (Hydroxyzine HCl) 25 Mg Tablet 25 MG PO Q6H PRN for ITCHING, #20 TAB Prov: MIGNON DE GUZMAN MD 10/25/22 Prednisone (Prednisone) 10 Mg Tab 1 TAB PO UD, #18 TAB 3 tabs daily for 3 days, then 2 tabs dayly for 3 days, then 1 tab daily for 3 days. Prov: MIGNON DE GUZMAN MD 10/25/22 Copy Copies To 1: [facility]/MIGNON PEREIRA MD October 25, 2022 08:02
[2022-10-25 08:10] VITALS: BP 122/65
== END 2022-10-25 08:10 | disposition home or self-care (01) ==
LOC: EDUNIT# 07:04 → ER 07:06
DX: L25.9 Unspecified contact dermatitis, unspecified cause (principal); F17.210 Nicotine dependence, cigarettes, uncomplicated; Z28.310 Unvaccinated for COVID-19
CPT/HCPCS: 99283

== ENCOUNTER → 2023-01-30 | Outpatient (CLI) | payer MEDICARE, MEDICAID ==
[~2023-01-30] MED LIST changes: +PRD10T PO
--- NOTE | 2023-01-30 17:04 | Diagnostic Imaging Report ---
INDICATION: Bilateral knee pain. TECHNIQUE: AP, oblique and lateral views of both knees are obtained with sunrise images. COMPARISON: Comparison is made to study of 02/03/2013. FINDINGS: No acute fracture or dislocation is identified. No abnormal lytic or sclerotic focus is seen, and there is no radiopaque foreign body. IMPRESSION: No acute abnormality. Dictated by: Dictated on workstation # [id number]
== END ==
LOC: ORTHO 12:16
PROVIDERS: ATTEND Orthopaedic Surgery
DX: M25.561 Pain in right knee (principal); M25.562 Pain in left knee
CPT/HCPCS: 99203

== ENCOUNTER → 2023-05-21 | Outpatient (CLI) | payer MEDICARE | LOC: CARD 10:40 | PROVIDERS: ATTEND Internal Medicine Cardiovascular Disease | DX: I11.9 Hypertensive heart disease without heart failure (principal); I25.10 Atherosclerotic heart disease of native coronary artery without angina pectoris | CPT/HCPCS: 93306 ==